=== PATIENT | female | born 1935 | race Caucasian/White ===

== ENCOUNTER 2016-08-14 09:27 | Inpatient (IN) | payer MEDICARE, BC ==
[~2016-08-14] VITALS: Ht 152.4 cm; Wt 45.4 kg
[~2016-08-14 09:27] MED LIST: ACET-704 PO; AMIT25TA PO; CALC3.7S5 NS; CARV6.252 PO; CIPR250T30 PO; CIPR500T94 PO; HYDR-2666 PO; INSU100V31 SQ; INSU100V8 SQ; METR500T PO; OMEP20CA9 PO; POLY17PO29 PO; SIMV80TA3 PO; TAMS0.4C2 PO
--- NOTE | 2016-08-14 09:32 | PHYS DOC ---
Past Medical History Past Medical History: Diabetes-Type II, Hypertension, Other Additional Past Medical Histor: heart murmur, CHRONIC LOW BACK PAIN. Past Surgical History: Cholecystectomy, Other Additional Past Surgical Histo: back surgery, eye surgery, right humerus surgery, KYPHOPLASTY Alcohol Use: None Drug Use: None Adult General Chief Complaint Chief Complaint: WEAKNESS/GENERALIZED HPI HPI Patient is a 80 year old female brought in by for evaluation of increased confusion and decreased ambulation and generally not doing well at home. Patient says that she has pain all over but is worse in her perineal area. She was incontinent of urine in hent a large amount of stool as well that was cleaned up by the nurses prior to me seeing her. There is no obvious deformity or infection with no subcutaneous gas however reports that she has been having this pain for a long period of time and is seeing multiple specialists for it. reports that she is not as interactive as usual and that she is getting to be so debilitated that he cannot take care of her anymore as he has heart failure. Patient reportedly has been in bed for 2 weeks straight and has not been ambulatory. Review of Systems Review of Systems Constitutional: Denies fever or chills [] Eyes: Denies change in visual acuity, redness, or eye pain [] HENT: Denies nasal congestion or sore throat [] Respiratory: Denies cough or shortness of breath [] Cardiovascular: No additional information not addressed in HPI [] GI: + abdominal pain. No nausea, vomiting, bloody stools or diarrhea [] : Denies dysuria or hematuria [] Musculoskeletal: Denies back pain or joint pain [] Integument: Denies rash or skin lesions [] Neurologic: Denies headache, focal weakness or sensory changes [] Current Medications Current Medications Current Medications Medications (Trade) Dose Ordered Sig/Rosa Start Time Stop Time Status Last Admin Dose Admin Sodium Chloride 1,000 ml @ 1,000 mls/hr 1X ONCE 08/14/16 09:45 08/14/16 10:44 DC 08/14/16 10:24 1,000 MLS/HR Allergies Allergies Allergies Coded Allergies Type Severity Reaction Last Updated Verified clarithromycin Allergy Intermediate 11/16/15 Yes niacin Allergy Intermediate Rash 04/06/15 Yes Physical Exam Physical Exam Constitutional: Well developed, well nourished, no acute distress, non-toxic appearance. [] HENT: Normocephalic, atraumatic, bilateral external ears normal, oropharynx moist, no oral exudates, nose normal. [] Eyes: PERRLA, EOMI, conjunctiva normal, no discharge. [] Neck: Normal range of motion, no tenderness, supple, no stridor. [] Cardiovascular:Heart rate regular rhythm, no murmur [] Lungs & Thorax: Bilateral breath sounds clear to auscultation [] Abdomen: Bowel sounds normal, soft, no tenderness, no masses, no pulsatile masses. [] Skin: Warm, dry, no erythema, no rash. [] Back: No tenderness, no CVA tenderness. [] Extremities: No tenderness, no cyanosis, no clubbing, ROM intact, no edema. [] Neurologic: Alert and oriented X 2, normal motor function, normal sensory function, no focal deficits noted. [] Current Patient Data Vital Signs Vital Signs Date Time Temp Pulse Resp B/P (MAP) Pulse Ox O2 Delivery O2 Flow Rate FiO2 08/14/16 10:49 72 22 151/73 (99) 94 08/14/16 09:49 98.0 Room Air 98.0 Lab Values Laboratory Tests Test 08/14/16 10:05 08/14/16 10:10 Urine Collection Type Unknown Urine Color Yellow Urine Clarity Clear Urine pH 6.0 Urine Specific Hooper >=1.030 Urine Protein 30 mg/dL (NEG-TRACE) Urine Glucose (UA) >=1000 mg/dL (NEG) Urine Ketones (Stick) Negative mg/dL (NEG) Urine Blood Small (NEG) Urine Nitrite Negative (NEG) Urine Bilirubin Negative (NEG) Urine Urobilinogen Dipstick 0.2 mg/dL (0.2 mg/dL) Urine Leukocyte Esterase Negative (NEG) Urine RBC 11-20 /HPF (0-2) Urine WBC 0 /HPF (0-4) Urine Squamous Epithelial Cells Few /LPF Urine Bacteria 0 /HPF (0-FEW) White Blood Count 10.9 x10^3/uL (4.0-11.0) Red Blood Count 5.09 x10^6/uL (3.50-5.40) Hemoglobin 14.7 g/dL (12.0-15.5) Hematocrit 43.8 % (36.0-47.0) Mean Corpuscular Volume 86 fL (79-100) Mean Corpuscular Hemoglobin 29 pg (25-35) Mean Corpuscular Hemoglobin Concent 34 g/dL (31-37) Red Cell Distribution Width 14.4 % (11.5-14.5) Platelet Count 344 x10^3/uL (140-400) Neutrophils (%) (Auto) 80 % (31-73) H Lymphocytes (%) (Auto) 14 % (24-48) L Monocytes (%) (Auto) 5 % (0-9) Eosinophils (%) (Auto) 0 % (0-3) Basophils (%) (Auto) 0 % (0-3) Neutrophils # (Auto) 8.7 x10^3uL (1.8-7.7) H Lymphocytes # (Auto) 1.6 x10^3/uL (1.0-4.8) Monocytes # (Auto) 0.5 x10^3/uL (0.0-1.1) Eosinophils # (Auto) 0.0 x10^3/uL (0.0-0.7) Basophils # (Auto) 0.0 x10^3/uL (0.0-0.2) Prothrombin Time 12.7 SEC (11.7-14.0) Prothrombin Time INR 1.0 (0.8-1.1) PTT 31 SEC (24-38) Sodium Level 131 mmol/L (136-145) L Potassium Level 5.2 mmol/L (3.5-5.1) H Chloride Level 94 mmol/L (98-107) L Carbon Dioxide Level 26 mmol/L (21-32) Anion Gap 11 (6-14) Blood Urea Nitrogen 42 mg/dL (7-20) H Creatinine 1.6 mg/dL (0.6-1.0) H Estimated GFR (Cockcroft-Gault) 30.9 BUN/Creatinine Ratio 26 (6-20) H Glucose Level 830 mg/dL (70-99) *H Serum Osmolality 329 mOsm/Kg (279-304) H Lactic Acid Level 2.0 mmol/L (0.4-2.0) Calcium Level 9.5 mg/dL (8.5-10.1) Magnesium Level 2.0 mg/dL (1.8-2.4) Total Bilirubin 0.6 mg/dL (0.2-1.0) Aspartate Amino Transferase (AST) 10 U/L (15-37) L Alanine Aminotransferase (ALT) 18 U/L (14-59) Alkaline Phosphatase 104 U/L (46-116) Creatine Kinase 28 U/L (26-192) Troponin I Quantitative < 0.017 ng/mL (0.000-0.055) XP-Zng-B-Type Natriuretic Peptide 335 pg/mL (0-449) Total Protein 8.2 g/dL (6.4-8.2) Albumin 3.3 g/dL (3.4-5.0) L Albumin/Globulin Ratio 0.7 (1.0-1.7) L Lipase 306 U/L (73-393) Thyroid Stimulating Hormone (TSH) 1.338 uIU/mL (0.358-3.74) Salicylates Level < 2.8 mg/dL (2.8-20.0) L Salicylate Last Dose Date Unknown Salicylate Last Dose Time Unknown Acetaminophen Level < 2 mcg/ml (10-30) L Acetaminophen Last Dose Date Unknown Acetaminophen Last Dose Time Unknown Laboratory Tests 08/14/16 10:10 Laboratory Tests 08/14/16 10:10 EKG EKG Sinus rhythm at 74 bpm with leftward axis no obvious ST elevation or depression and normal T waves Radiology/Procedures Radiology/Procedures EXAM: Head CT without contrast. HISTORY: Altered mental status. TECHNIQUE: Computed tomographic images of the head were obtained without contrast. COMPARISON: 05/12/2012. FINDINGS: There is no acute or subacute extra-axial or intraparenchymal hemorrhage. There is no mass effect or midline shift. There is no hydrocephalus. There is encephalomalacia within the ureter right frontal and temporal lobes, possibly due to chronic infarction. There are also suspected chronic lacunar infarcts within the right putamen and left internal capsule. There is extensive decreased attenuation throughout the cerebral white matter, a nonspecific finding likely due to chronic small vessel disease. There is cerebral volume loss. There are findings consistent with lens surgery. There is near complete opacification of the left maxillary sinus. There is a small mucous retention cyst within the joint sinus. There is lucency throughout the calvarium similar compared to the prior study, likely due to combination of bone demineralization multiple vascular channels. IMPRESSION: 1. No acute intracranial finding. Note is made that MRI is more sensitive for acute infarction. 2. 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 3. Decreased attenuation throughout the cerebral white matter, likely due to chronic small vessel disease. 4. Cerebral and loss. 5. Left maxillary sinus disease. PQRS Compliance Statement: One or more of the following individualized dose reduction techniques were utilized for this examination: 1. Automated exposure control 2. Adjustment of the mA and/or kV according to patient size 3. Use of iterative reconstruction technique DICTATED and SIGNED BY: TOOTIE PERALTA MD DATE: 08/14/16 1100 EXAM: Chest, single view. HISTORY: Altered mental status. COMPARISON: 10/09/2013 and 04/04/2007. FINDINGS: A frontal view of the chest is obtained. There is a stable to slight increased opacity along the lateral right mid thorax, consistent with a fat density pleural-based lesion on a prior CT dated 04/04/2007. There is no infiltrate, effusion or pneumothorax. The heart is normal in size. There is a right shoulder arthroplasty. There is internal fixation of the thoracolumbar spine traversing multiple compression fractures. There are also compression fractures with vertebroplasty changes at the upper lumbar levels. IMPRESSION: 1. No acute pulmonary finding. 2. Stable to slight increased opacity within the lateral right mid thorax. This corresponds with a fat density pleural-based lesion on the remote prior CT dated 04/04/2007. The stability to slow interval change favors a benign lipoma. DICTATED and SIGNED BY: TOOTIE PERALTA MD DATE: 08/14/16 0851 Course & Med Decision Making Course & Med Decision Making Patient's labs show that she is quite hyperglycemic however there is no ketones in her urine and she is not acidotic. Given patient is failing at home and she has laboratory abnormalities she will be admitted for further observation and treatment. She was treated with IV fluids and a one-time 10 unit bolus of insulin in the emergency department. Dragon Disclaimer Dragon Disclaimer This electronic medical record was generated, in whole or in part, using a voice recognition dictation system. Departure Departure Impression: Primary Impression: Encephalopathy acute Additional Impressions: Hyperglycemia Renal insufficiency Dehydration Disposition: ADMITTED INPATIENT Admitting Physician: Robert Griffin Condition: STABLE Referrals: ROBERT GRIFFIN MD (PCP) Problem Qualifiers YOSEF HOLT DO August 14, 2016 09:32
[2016-08-14] MEDS ORDERED: IV NORMAL SALINE 1000ML BAG 1,000 ML IV ONE ×2 (09:45→11:15)
[2016-08-14 10:25] LABS: BILIRUBIN,URINE NEGATIVE (NEG); GLUCOSE,URINE >=1000 mg/dL (NEG); NITRITE,URINE NEGATIVE (NEG); PROTEIN,URINE 30 mg/dL (NEG-TRACE); UROBILINOGEN,URINE 0.2 mg/dL (0.2 mg/dL)
[2016-08-14 10:44] LABS: BACTERIA,URINE 0 /HPF (0-FEW); SQUAMOUS EPITHELIAL CELL,UR FEW /LPF; WBC,URINE 0 /HPF (0-4)
[2016-08-14 10:49] LABS: BASO % 0 % (0-3); EOS % 0 % (0-3); HEMATOCRIT 43.8 % (36.0-47.0); HEMOGLOBIN 14.7 g/dL (12.0-15.5); LYMPH # 1.6 x10^3/uL (1.0-4.8); LYMPH % 14 % (24-48); MEAN CORPUSCULAR HEMOGLOBIN 29 pg (25-35); MEAN CORPUSCULAR HGB CONC 34 g/dL (31-37); MEAN CORPUSCULAR VOLUME 86 fL (79-100); MONO % 5 % (0-9); NEUT % 80 % (31-73); PLATELET COUNT 344 x10^3/uL (140-400); RED BLOOD COUNT 5.09 x10^6/uL (3.50-5.40); RED CELL DISTRIBUTION WIDTH 14.4 % (11.5-14.5); WHITE BLOOD COUNT 10.9 x10^3/uL (4.0-11.0)
[2016-08-14 10:52] LABS: PROTHROMBIN TIME PATIENT 12.7 SEC (11.7-14.0)
[2016-08-14 10:55] LABS: CALCIUM 9.5 mg/dL (8.5-10.1); CREATININE 1.6 mg/dL (0.6-1.0); GFR 30.9; POTASSIUM 5.2 mmol/L (3.5-5.1)
--- NOTE | 2016-08-14 10:57 | RAD ---
EXAM: Chest, single view. HISTORY: Altered mental status. COMPARISON: 10/09/2013 and 04/04/2007. FINDINGS: A frontal view of the chest is obtained. There is a stable to slight increased opacity along the lateral right mid thorax, consistent with a fat density pleural-based lesion on a prior CT dated 04/04/2007. There is no infiltrate, effusion or pneumothorax. The heart is normal in size. There is a right shoulder arthroplasty. There is internal fixation of the thoracolumbar spine traversing multiple compression fractures. There are also compression fractures with vertebroplasty changes at the upper lumbar levels. IMPRESSION: 1. No acute pulmonary finding. 2. Stable to slight increased opacity within the lateral right mid thorax. This corresponds with a fat density pleural-based lesion on the remote prior CT dated 04/04/2007. The stability to slow interval change favors a benign lipoma.
[2016-08-14 10:58] LABS: ALBUMIN 3.3 g/dL (3.4-5.0); ALBUMIN/GLOBULIN RATIO 0.7 (1.0-1.7); TOTAL BILIRUBIN 0.6 mg/dL (0.2-1.0); TOTAL PROTEIN 8.2 g/dL (6.4-8.2)
--- NOTE | 2016-08-14 11:06 | RAD ---
EXAM: Head CT without contrast. HISTORY: Altered mental status. TECHNIQUE: Computed tomographic images of the head were obtained without contrast. COMPARISON: 05/12/2012. FINDINGS: There is no acute or subacute extra-axial or intraparenchymal hemorrhage. There is no mass effect or midline shift. There is no hydrocephalus. There is encephalomalacia within the ureter right frontal and temporal lobes, possibly due to chronic infarction. There are also suspected chronic lacunar infarcts within the right putamen and left internal capsule. There is extensive decreased attenuation throughout the cerebral white matter, a nonspecific finding likely due to chronic small vessel disease. There is cerebral volume loss. There are findings consistent with lens surgery. There is near complete opacification of the left maxillary sinus. There is a small mucous retention cyst within the joint sinus. There is lucency throughout the calvarium similar compared to the prior study, likely due to combination of bone demineralization multiple vascular channels. IMPRESSION: 1. No acute intracranial finding. Note is made that MRI is more sensitive for acute infarction. 2. 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 3. Decreased attenuation throughout the cerebral white matter, likely due to chronic small vessel disease. 4. Cerebral and loss. 5. Left maxillary sinus disease. PQRS Compliance Statement: One or more of the following individualized dose reduction techniques were utilized for this examination: 1. Automated exposure control 2. Adjustment of the mA and/or kV according to patient size 3. Use of iterative reconstruction technique
--- NOTE | 2016-08-14 11:10 | EKG ---
[facility] [address] [place] [address] Test Date: 2016-08-14 Test Time: 09:55:02 Pat Name: ASPEN AYERS Department: Room: Gender: F Straightener: : 1935 Requested By: YOSEF HOLT Order Number: [id number] Reading MD: Yessi Mcnamara Measurements Intervals Barker Rate: 74 P: 29 AR: 122 QRS: -22 QRSD: 74 T: 13 QT: 380 QTc: 427 Interpretive Statements SINUS RHYTHM LEFTWARD AXIS Electronically Signed On 08-14-2016 15:59:55 CDT by Yessi Mcnamara
[2016-08-14] MEDS ORDERED: ONDANSETRON PF 4 MG/2 ML VIAL. IV PRN (11:15)
[2016-08-14] MEDS ORDERED: INSULIN REGULAR 100 UNIT/ML 10ML VIAL. IV ONE (11:15)
--- NOTE | 2016-08-14 11:46 | ACF ---
Admission Forms Criteria MENTAL STATUS CHANGE Clinical Indications for Inpatient Care (Place 'X' for any and all applicable criteria): Ongoing inpatient care may be needed for 1 or more of the following(1)(2)(3)(5)( 6): [X]I. Suspected serious etiology (eg, medical disorder, GUEST RELATIONS REPRESENTATIVE event) of altered mental status [ ]II. Danger to self or others not manageable at lower level of care [ ]III. Grave disability (eg, inability to perform self care necessary at lower level of care) [ ]IV. Agitation or inappropriate behavior interfering with care for primary condition (eg, attempting to discontinue lines or drains prematurely, unable to cooperate with respiratory care) [ ]V. Delirium [A] [D][E] as described by 1 or more of the following(26): [ ]a) Delirium due to alcohol or sedative [F] withdrawal [ ]b) Delirium of uncertain etiology that has not responded to appropriate empiric treatment [ ]c) Delirium that prevents performance of a life-sustaining function (eg, feeding or hydrating oneself) [ ]. General contraindications and/or Inappropriate clinical situations for Observational Care in patients with Mental Status Change, when ANY ONE of the following is required: [ ]a) Prediction of prolongation of LOS based on ANY ONE of the following may be considered as a contraindication for observational care 2, 3, 4, 5, 6, 7, 8, 9, 10, 11 [ ]i) Age > 65 yrs. [ ]ii) Patient arriving by ambulance [ ]iii) Patient with high acuity [ ]iv) Patient requiring vital sign monitoring [ ]v) Patient on IV medication [ ]b) Systolic blood pressures greater than or equal to 180mmHg 3, 12 [ ]c) Patient with altered mental status including delirium and other alteration of consciousness, (3) [ ]d) Patient whose discharge disposition will be to a senior living home or rehabilitation home should not be managed in Emergency Department Observation Unit. CMS rule requires 3 days hospital stay before such placement.3,13 [ ]e) Patient with failure to thrive due to broad array of etiologies 3,16,17 [ ]f) Inability to ambulate 3,14 Extended stay beyond goal length of stay for the primary condition may be needed until ALL of the following are present(3)(5): [ ]a) Underlying medical etiology of mental status change is absent, or has been established and adequately treated [ ]b) Danger to self or others is absent or manageable at lower level of care. [ ]c) Behavior crisis management, including physical or chemical restraints, is not required or available at lower level of car [ ]d) Substance or alcohol withdrawal is absent or manageable at lower level of care. [ ]e) Behavioral symptoms (eg, agitation, somnolence, inappropriate behavior) are absent, or are manageable at lower level of care. The original [facility] [employer] content created by [facility] [employer] has been revised. The portions of the content which have been revised are identified through the use of italic text or in bold, and [facility] has neither reviewed nor approved the modified material. All other unmodified content is copyright [facility]. Please see references footnoted in the original [facility] edition 2016 Admission Criteria Met?: Yes AXEL ZEPEDA August 14, 2016 11:46
[2016-08-14 13:05] VITALS: BP 144/77
[2016-08-14] MEDS: INSULIN ASPART 300 UNITS/3 ML INSULN.PEN SQ SCH ×6 (13:10→23:10)
[2016-08-14] MEDS ORDERED: DEXTROSE 50% 25 GM / 50ML DISP.SYRIN. IV PRN (13:15)
[2016-08-14 15:00] VITALS: BP 157/89
[2016-08-14] MEDS ORDERED: ONDA4TAB12 PO (16:48)
[2016-08-14] MEDS ORDERED: INSULIN ASPART 300 UNITS/3 ML INSULN.PEN SQ SCH (17:00)
[2016-08-14 19:00] VITALS: BP 107/63
[2016-08-14 22:57] VITALS: BP 134/61
[2016-08-15] MEDS: INSULIN ASPART 300 UNITS/3 ML INSULN.PEN SQ SCH ×9 (01:10→20:28)
[2016-08-15 03:00] VITALS: BP 141/61
[2016-08-15 05:19] LABS: BASO % 0 % (0-3); EOS % 2 % (0-3); HEMATOCRIT 39.3 % (36.0-47.0); HEMOGLOBIN 12.9 g/dL (12.0-15.5); LYMPH # 2.8 x10^3/uL (1.0-4.8); LYMPH % 25 % (24-48); MEAN CORPUSCULAR HEMOGLOBIN 28 pg (25-35); MEAN CORPUSCULAR HGB CONC 33 g/dL (31-37); MEAN CORPUSCULAR VOLUME 85 fL (79-100); MONO % 6 % (0-9); NEUT % 66 % (31-73); PLATELET COUNT 273 x10^3/uL (140-400); RED BLOOD COUNT 4.64 x10^6/uL (3.50-5.40); RED CELL DISTRIBUTION WIDTH 14.5 % (11.5-14.5)
[2016-08-15 05:45] LABS: CREATININE 1.1 mg/dL (0.6-1.0); GFR 47.6; POTASSIUM 4.5 mmol/L (3.5-5.1)
[2016-08-15 05:48] LABS: CALCIUM 8.5 mg/dL (8.5-10.1)
[2016-08-15 07:00] VITALS: BP 144/77
[2016-08-15 10:46] VITALS: BP 118/67
[2016-08-15] MEDS ORDERED: DEXTROSE 50% 25 GM / 50ML DISP.SYRIN. IV PRN ×2 (12:30)
[2016-08-15] MEDS ORDERED: ONDANSETRON ODT 4 MG TAB.RAPDIS. PO PRN (12:30)
[2016-08-15] MEDS ORDERED: POLYETHYLENE GLYCOL 3350 17 GM PACKET. PO PRN (12:30)
--- NOTE | 2016-08-15 12:39 | PDOC ---
Provider Note Provider Note [id number] YOSEF GLASS MD August 15, 2016 12:39
[2016-08-15] MEDS: AMITRIPTYLINE HCL 25 MG TABLET. PO SCH (12:52)
[2016-08-15] MEDS: HYDROcodone/APAP 5/325MG 1 TAB TABLET PO PRN (12:52)
--- NOTE | 2016-08-15 13:02 | HP ---
ADMIT DATE: 08/14/2016 CHIEF COMPLAINT: Weakness and high blood sugar. HISTORY OF PRESENT ILLNESS: This is an 80-year-old white female, patient of Dr. Peres who normally has been on insulin for diabetes, ____ she is not taking "it for a long time" since she ____ [facility]. She came in with a high blood sugar of 500, after a couple doses of Humalog, her blood sugars are down to around 150-200 and she is feeling better. She has no other specific complaints. PAST MEDICAL HISTORY: Well documented in old records. MEDICATIONS: Listed per the chart. She is not able to provide clear surgical history. She has a history of macular degeneration and poor hearing as well. SOCIAL HISTORY: Nonsmoker, nondrinker, and lives at home according to her. FAMILY HISTORY: Unremarkable. REVIEW OF SYSTEMS: No other specific complaints. OBJECTIVE: ENT: Mild pallor, otherwise all within normal limits. Mucosa mildly dry. NECK: Revealed no carotid bruits, JVD or nodes. LUNGS: Clear. CARDIOVASCULAR: Regular rate. No irregular beat, murmur or tachycardia. ABDOMEN: Soft, benign and nontender. EXTREMITIES: Very diminished muscle mass. No joint or skin lesions. Skin turgor is decreased. Pedal pulses mildly decreased as well. NEUROLOGIC: Moves all extremities. Oriented poor hearing, poor vision. Cranial nerves and cerebellar appear to be intact. No tremors are noted. oriented x 4. ASSESSMENT: Severe hyperglycemia, presumably from to simply lack of insulin. Rest of labs looks pretty good except for she is mildly dry. PLAN: Continue Levemir and sliding scale to maintain a blood sugar in the 150-200 range for safety. YOSEF GLASS MD DR: JUSTIN/jong JOB#: [id number] / [id number]
[2016-08-15] MEDS: CALCITONIN,SALMON NASAL 200 UNITS/SPRAY 3.7ML BOTTLE. NS SCH (14:37)
[2016-08-15 14:58] VITALS: BP 120/70
[2016-08-15] MEDS: PANTOPRAZOLE 40 MG TABLET.DR. PO SCH (16:35)
[2016-08-15] MEDS: CARVEDILOL 6.25 MG TABLET. PO SCH (16:35)
[2016-08-15 19:00] VITALS: BP 89/53
[2016-08-15] MEDS: TAMSULOSIN 0.4 MG CAP.ER.24H. PO SCH (20:15)
[2016-08-15] MEDS: INSULIN DETEMIR 300 UNITS/3 ML INSULN.PEN. SQ SCH (20:27)
[2016-08-15 23:05] VITALS: BP 104/56
[2016-08-16 03:00] VITALS: BP 119/58
[2016-08-16 07:00] VITALS: BP 123/65
[2016-08-16] MEDS: PANTOPRAZOLE 40 MG TABLET.DR. PO SCH (07:21)
[2016-08-16] MEDS: INSULIN ASPART 300 UNITS/3 ML INSULN.PEN SQ SCH ×7 (07:49→21:38)
[2016-08-16] MEDS: AMITRIPTYLINE HCL 25 MG TABLET. PO SCH (08:21)
[2016-08-16] MEDS: CALCITONIN,SALMON NASAL 200 UNITS/SPRAY 3.7ML BOTTLE. NS SCH (08:22)
[2016-08-16] MEDS: CARVEDILOL 6.25 MG TABLET. PO SCH ×2 (08:22→17:15)
[2016-08-16 11:00] VITALS: BP 110/82
[2016-08-16] MEDS: HYDROcodone/APAP 5/325MG 1 TAB TABLET PO PRN (14:27)
[2016-08-16 15:00] VITALS: BP 109/66
--- NOTE | 2016-08-16 17:38 | PDOC2 ---
CONSULT Date of Consult Date of Consult DATE: 08/16/16 TIME: 17:32 Reason for Consult Reason for Consult: vulvar burning Referring Physician Referring Physician: Dr. Salcido Identification/Chief Complaint Chief Complaint vulvar burning Source Source: Chart review, Patient History of Present Illness Reason for Visit: 80 y/o brought from half-way. She is poor historian. Pt. reports at least 1 year of vulvar pruritis unresponsive to treatments from previous [employer] physicians. She denies any pain, bleeding, or hematuria. Chart reviewed. Pt. uncontrolled diabetes. Past Medical History Cardiovascular: Hyperlipidemia Pulmonary: No pertinent hx GI: GERD, Other Heme/Onc: No pertinent hx Hepatobiliary: Cholelithiasis Psych: Anxiety Musculoskeletal: Other Rheumatologic: No pertinent hx Renal/: Chronic renal failure, UTI Endocrine: Diabetes, Hypothyroidism Past Surgical History Past Surgical History: Appendectomy, Cholecystectomy Family History Family History: Diabetes, Heart Disease Social History ALCOHOL: none Drugs: None Lives: with Family Current Problem List Problem List Problems Medical Problems: (1) Dehydration Status: Acute (2) Encephalopathy acute Status: Acute (3) Hyperglycemia Status: Acute (4) Renal insufficiency Status: Acute Current Medications Current Medications Current Medications Sodium Chloride 1,000 ml @ 1,000 mls/hr 1X ONCE IV Last administered on 10:24; Start 08/14/16 at 09:45; Stop 08/14/16 at 10:44; Status DC Insulin Human Regular (NovoLIN R VIAL) 10 unit 1X ONCE IV Last administered on 08/14/16 11:25; Start 08/14/16 at 11:15; Stop 08/14/16 at 11:17; Status DC Sodium Chloride 1,000 ml @ 150 mls/hr 1X ONCE IV Last administered on 12:13; Start 08/14/16 at 11:15; Stop 08/14/16 at 17:54; Status DC Ondansetron HCl (Zofran) 4 mg PRN Q8HRS PRN IV NAUSEA/VOMITING Last administered on 08/14/16 11:22; Start 08/14/16 at 11:15; Stop 08/15/16 at 11:14 ; Status DC Insulin Aspart (NovoLOG) 0-7 UNITS TIDWMEALS SQ ; Start 08/14/16 at 17:00; Stop 08/14/16 at 17:00; Status DC Dextrose (Dextrose 50%-Water Syringe) 12.5 gm PRN Q15MIN PRN IV SEE COMMENTS; Start 08/14/16 at 13:15; Status Cancel Insulin Aspart (NovoLOG) 0-7 UNITS Q2H SQ Last administered on 08/15/16 11:29 ; Start 08/14/16 at 13:10; Stop 08/15/16 at 13:08; Status DC Amitriptyline HCl (Elavil) 25 mg DAILY PO Last administered on 08/16/16 08:21 ; Start 08/15/16 at 13:00 Calcitonin [place] (Miacalcin Nasal) 1 spray DAILY NS Last administered on 08:22; Start 08/15/16 at 12:00 Carvedilol (Coreg) 6.25 mg BIDWMEALS PO Last administered on 08/16/16 17:15; Start 08/15/16 at 17:00 Acetaminophen/ Hydrocodone Bitart (Lortab 5/325) 1 tab PRN Q4HRS PRN PO MODERATE TO SEVERE PAIN Last administered on 08/16/16 14:27; Start 08/15/16 at 12:30 Insulin Aspart (NovoLOG) 4 units QIDACHS SQ Last administered on 08/16/16 17: 19; Start 08/15/16 at 16:30 Ondansetron HCl (Zofran Odt) 4 mg PRN Q4HRS PRN PO NAUSEA; Start 08/15/16 at 12 :30 Polyethylene Glycol (miraLAX PACKET) 17 gm PRN DAILY PRN PO CONSTIPATION; Start 08/15/16 at 12:30 Tamsulosin HCl (Flomax) 0.4 mg QHS PO Last administered on 08/15/16 20:15; Start 08/15/16 at 21:00 Insulin Detemir (Levemir) 19 units QHS SQ Last administered on 08/15/16 20:27 ; Start 08/15/16 at 21:00 Pantoprazole Sodium (Protonix) 40 mg DAILYAC PO Last administered on 08/16/16 07:21; Start 08/15/16 at 16:30 Dextrose (Dextrose 50%-Water Syringe) 12.5 gm PRN Q15MIN PRN IV SEE COMMENTS; Start 08/15/16 at 12:30 Dextrose (Dextrose 50%-Water Syringe) 12.5 gm PRN Q15MIN PRN IV SEE COMMENTS; Start 08/15/16 at 12:30; Stop 08/15/16 at 12:42; Status DC Insulin Aspart (NovoLOG) 0-5 UNITS TIDWMEALS SQ Last administered on 08/16/16t 11:52; Start 08/15/16 at 17:00 Active Scripts Active Calcitonin-[place] (Calcitonin,[place],Synthetic) 3.7 Ml [place].pump 1 [place] NS DAILY Hydrocodone-Apap 5-325 (Hydrocodone Bit/Acetaminophen) 1 Each Tablet 1 Tab PO PRN Q4HRS PRN Reported Ondansetron Odt (Ondansetron) 4 Mg Tab.rapdis 4 Mg PO PRN Q4HRS PRN Tamsulosin Hcl 0.4 Mg Cap.er.24h 1 Cap PO QHS Miralax (Polyethylene Glycol 3350) 17 Gm Powd.pack 1 Pkt PO DAILY PRN Novolog (Insulin Aspart) 100 Unit/1 Ml Vial 4 Unit SQ QIDACHS Amitriptyline Hcl 25 Mg Tablet 25 Mg PO DAILY Lantus (Insulin Glargine,Hum.rec.anlog) 100 Unit/1 Ml Vial 19 Unit SQ HS Omeprazole 20 Mg Capsule.dr 20 Mg PO DAILY Tylenol With Codeine #3 Tablet (Acetaminophen/Codeine Phosphate) 1 Each Tablet 1 Each PO Q4HRS PRN Carvedilol 6.25 Mg Tablet 6.25 Mg PO BID Allergies Allergies: Coded Allergies: clarithromycin (Verified Allergy, Intermediate, 11/16/15) niacin (Verified Allergy, Intermediate, Rash, 04/06/15) ROS General: YES: Fatigue, Appetite, No: Chills, Night Sweats, Malaise, Other PSYCHOLOGICAL ROS: No: Anxiety, Behavioral Disorder, Concentration difficultie , Decreased libido, Depression, Disorientation, Hallucinations, Hostility, Irritablity, Memory difficulties, Mood Swings, Obsessive thoughts, Physical abuse, Sexual abuse, Sleep disturbances, Suicidal ideation, Other Eyes: Yes Decreased vision, No Blurry vision, No Double vision, No Dry eyes, No Excessive tearing, No Eye Pain, No Itchy Eyes, No Loss of vision, No Photophobia, No Scotomata, No Uses contacts, No Uses glasses, No Other HEENT: YES: Hearing change, No: Heacaches, Visual Changes, Nasal congestion, Nasal discharge, Oral lesions, Sinus pain, Sore Throat, Epistaxis, Sneezing, Snoring, Tinnitus, Vertigo, Vocal changes, Other ALLERGY AND IMMUNOLOGY: No: Hives, Insect Bite Sensitivity, Itchy/Watery Eyes, Nasal Congestion, Post Nasal Drip, Seasonal Allergies, Other Hematological and Lymphatic: No: Bleeding Problems, Blood Clots, Blood Transfusions, Brusing, Night Sweats, Pallor, Swollen Lymph Nodes, Other ENDOCRINE: No: Breast Changes, Galactorrhea, Hair Pattern Changes, Hot Flashes , Malaise/lethargy, Mood Swings, Palpitations, Polydipsia/polyuria, Skin Changes , Temperature Intolerance, Unexpected Weight Changes, Other Breast: No New/Changing Breast Lumps, No Nipple changes, No Nipple discharge, No Other Respiratory: No: Cough, Hemoptysis, Orthopnea, Pleuritic Pain, Shortness of breath, SOB with excertion, Sputum Changes, Stridor, Tachypnea, Wheezing, Other Gastrointestinal: No Nausea, No Vomiting, No Abdominal Pain, No Diarrhea, No Constipation, No Melena, No Hematochezia, No Other Genitourinary: YES Other (vulvar pruritis) Skin: No Dry Skin, No Eczema, No Hair Changes, No Lumps, No Mole Changes, No Mottling, No Nail Changes, No Pruritus, No Rash, No Skin Lesion Changes, No Other, No Acne Physical Exam General: Alert, Cooperative HEENT: Atraumatic Lungs: Clear to auscultation Heart: Regular rate Abdomen: Normal bowel sounds, Soft, No tenderness, No masses, Other (Pelvic: nml atrophic vulvar and vaginal areas. No erythema, ulceration or evidence of infection.) Vitals VITALS Vital Signs Date Time Temp Pulse Resp B/P (MAP) Pulse Ox O2 Delivery O2 Flow Rate FiO2 08/16/16 17:15 68 109/66 08/16/16 15:00 97.9 22 99 Room Air 97.9 Labs Labs Laboratory Tests Test 08/14/16 19:25 08/14/16 21:14 08/14/16 23:09 08/15/16 01:17 Glucose (Fingerstick) 220 mg/dL (70-99) 74 mg/dL (70-99) 129 mg/dL (70-99) 144 mg/dL (70-99) Test 08/15/16 03:16 08/15/16 03:40 08/15/16 05:15 08/15/16 07:01 Glucose (Fingerstick) 212 mg/dL (70-99) 184 mg/dL (70-99) 216 mg/dL (70-99) White Blood Count 11.0 x10^3/uL (4.0-11.0) Red Blood Count 4.64 x10^6/uL (3.50-5.40) Hemoglobin 12.9 g/dL (12.0-15.5) Hematocrit 39.3 % (36.0-47.0) Mean Corpuscular Volume 85 fL (79-100) Mean Corpuscular Hemoglobin 28 pg (25-35) Mean Corpuscular Hemoglobin Concent 33 g/dL (31-37) Red Cell Distribution Width 14.5 % (11.5-14.5) Platelet Count 273 x10^3/uL (140-400) Neutrophils (%) (Auto) 66 % (31-73) Lymphocytes (%) (Auto) 25 % (24-48) Monocytes (%) (Auto) 6 % (0-9) Eosinophils (%) (Auto) 2 % (0-3) Basophils (%) (Auto) 0 % (0-3) Neutrophils # (Auto) 7.3 x10^3uL (1.8-7.7) Lymphocytes # (Auto) 2.8 x10^3/uL (1.0-4.8) Monocytes # (Auto) 0.7 x10^3/uL (0.0-1.1) Eosinophils # (Auto) 0.2 x10^3/uL (0.0-0.7) Basophils # (Auto) 0.0 x10^3/uL (0.0-0.2) Sodium Level 140 mmol/L (136-145) Potassium Level 4.5 mmol/L (3.5-5.1) Chloride Level 106 mmol/L (98-107) Carbon Dioxide Level 23 mmol/L (21-32) Anion Gap 11 (6-14) Blood Urea Nitrogen 29 mg/dL (7-20) Creatinine 1.1 mg/dL (0.6-1.0) Estimated GFR (Cockcroft-Gault) 47.6 Glucose Level 219 mg/dL (70-99) Calcium Level 8.5 mg/dL (8.5-10.1) Test 08/15/16 09:04 08/15/16 11:14 08/15/16 16:20 08/15/16 20:15 Glucose (Fingerstick) 333 mg/dL (70-99) 190 mg/dL (70-99) 293 mg/dL (70-99) 249 mg/dL (70-99) Test 08/16/16 07:23 08/16/16 10:47 Glucose (Fingerstick) 167 mg/dL (70-99) 164 mg/dL (70-99) Laboratory Tests Test 08/15/16 20:15 08/16/16 07:23 08/16/16 10:47 Glucose (Fingerstick) 249 mg/dL (70-99) 167 mg/dL (70-99) 164 mg/dL (70-99) Assessment/Plan Assessment/Plan A: Uncontrolled DM Type 2 Vulvitis: most likely yeast infection secondary to uncontrolled blood sugars P: Recommend nystatin/steroid cream TID. THank you for consult. DAYSI POLANCO Jr, MD August 16, 2016 17:38
--- NOTE | 2016-08-16 17:51 | PDOC ---
GENERAL General: vss and afebrile. awake and alert. weak. chest clear and heart regular. therapy recommending snu and will get eval. has expressed to nursing that he is not sure he can care for her any longer at home. sugars better with insulin back on board. otherwise same. Problems: VITAL SIGNS Vital Signs: Vital Signs Date Time Temp Pulse Resp B/P (MAP) Pulse Ox O2 Delivery O2 Flow Rate FiO2 08/16/16 17:15 68 109/66 08/16/16 15:00 97.9 22 99 Room Air 97.9 I & O I & O Intake and Output 08/16/16 07:00 Intake Total 1460 ml Output Total 0 ml Balance 1460 ml Intake Oral 1460 ml Output Urine Total 0 ml # Voids 4 ALLERGIES Allergies: Allergies Coded Allergies Type Severity Reaction Last Updated Verified clarithromycin Allergy Intermediate 11/16/15 Yes niacin Allergy Intermediate Rash 04/06/15 Yes MEDS Medications: Current Medications Medications (Trade) Dose Ordered Sig/Rosa Start Time Stop Time Status Last Admin Dose Admin Acetaminophen/ Hydrocodone Bitart (Lortab 5/325) 1 tab PRN Q4HRS PRN 08/15/16 12:30 08/16/16 14:27 1 TAB Amitriptyline HCl (Elavil) 25 mg DAILY 08/15/16 13:00 08/16/16 08:21 25 MG Calcitonin [place] (Miacalcin Nasal) 1 spray DAILY 08/15/16 12:00 08/16/16 08:22 1 SPRAY Carvedilol (Coreg) 6.25 mg BIDWMEALS 08/15/16 17:00 08/16/16 17:15 6.25 MG Dextrose (Dextrose 50%-Water Syringe) 12.5 gm PRN Q15MIN PRN 08/15/16 12:30 08/15/16 12:42 DC Insulin Aspart (NovoLOG) 0-5 UNITS TIDWMEALS 08/15/16 17:00 08/16/16 11:52 2 UNITS Insulin Detemir (Levemir) 19 units QHS 08/15/16 21:00 08/15/16 20:27 19 UNITS Insulin Human Regular (NovoLIN R VIAL) 10 unit 1X ONCE 08/14/16 11:15 08/14/16 11:17 DC 08/14/16 11:25 10 UNIT Nystatin/ Triamcinolone Acetonide (Mycolog Ii) 1 gabino TID 08/16/16 18:00 Ondansetron HCl (Zofran Odt) 4 mg PRN Q4HRS PRN 08/15/16 12:30 Ondansetron HCl (Zofran) 4 mg PRN Q8HRS PRN 08/14/16 11:15 08/15/16 11:14 DC 08/14/16 11:22 4 MG Pantoprazole Sodium (Protonix) 40 mg DAILYAC 08/15/16 16:30 08/16/16 07:21 40 MG Polyethylene Glycol (miraLAX PACKET) 17 gm PRN DAILY PRN 08/15/16 12:30 Sodium Chloride 1,000 ml @ 150 mls/hr 1X ONCE 08/14/16 11:15 08/14/16 17:54 DC 08/14/16 12:13 150 MLS/HR Tamsulosin HCl (Flomax) 0.4 mg QHS 08/15/16 21:00 08/15/16 20:15 0.4 MG LAB Lab: Laboratory Tests Test 08/15/16 20:15 08/16/16 07:23 08/16/16 10:47 Glucose (Fingerstick) 249 mg/dL (70-99) 167 mg/dL (70-99) 164 mg/dL (70-99) Nutrition Consultation Dietary Evaluation: Recommendations by RD: Add supplement feedings Comments: boost glucose control Expected Outcomes/Goals: to meet > 75% est nutr needs Malnutrition Findings: Food and Nutrition Intake (Mod: <75% est energy req 7days Body Fat Depletion (Non Severe: Mild Depletion Weight Status: Underweight APPLROBERT MD August 16, 2016 17:50
[2016-08-16] MEDS: NYSTATIN/TRIAMCIN TOPICAL CREAM 15GM TUBE. TP SCH ×2 (18:21→21:23)
[2016-08-16 19:00] VITALS: BP 92/53
[2016-08-16] MEDS: TAMSULOSIN 0.4 MG CAP.ER.24H. PO SCH (21:23)
[2016-08-16] MEDS: INSULIN DETEMIR 300 UNITS/3 ML INSULN.PEN. SQ SCH (21:37)
[2016-08-16 23:00] VITALS: BP 110/55
[2016-08-17 03:00] VITALS: BP 123/61
[2016-08-17 07:00] VITALS: BP 117/65
[2016-08-17] MEDS: NYSTATIN/TRIAMCIN TOPICAL CREAM 15GM TUBE. TP SCH (08:08)
[2016-08-17] MEDS: PANTOPRAZOLE 40 MG TABLET.DR. PO SCH (08:10)
[2016-08-17] MEDS: AMITRIPTYLINE HCL 25 MG TABLET. PO SCH (08:10)
[2016-08-17] MEDS: CARVEDILOL 6.25 MG TABLET. PO SCH (08:10)
[2016-08-17] MEDS: CALCITONIN,SALMON NASAL 200 UNITS/SPRAY 3.7ML BOTTLE. NS SCH (08:11)
[2016-08-17] MEDS: HYDROcodone/APAP 5/325MG 1 TAB TABLET PO PRN (08:14)
[2016-08-17] MEDS: INSULIN ASPART 300 UNITS/3 ML INSULN.PEN SQ SCH ×4 (08:18→11:56)
[2016-08-17 11:20] VITALS: BP 112/58
--- NOTE | 2016-08-17 17:09 | PDOC ---
GENERAL General: see discharge summary. Problems: VITAL SIGNS Vital Signs: Vital Signs Date Time Temp Pulse Resp B/P (MAP) Pulse Ox O2 Delivery O2 Flow Rate FiO2 08/17/16 11:20 98.4 66 16 112/58 (76) 96 Room Air 98.4 I & O I & O Intake and Output 08/17/16 07:00 Intake Total 1380 ml Output Total 900 ml Balance 480 ml Intake Oral 1380 ml Output Urine Total 900 ml # Voids 4 ALLERGIES Allergies: Allergies Coded Allergies Type Severity Reaction Last Updated Verified clarithromycin Allergy Intermediate 11/16/15 Yes niacin Allergy Intermediate Rash 04/06/15 Yes MEDS Medications: Current Medications Medications (Trade) Dose Ordered Sig/Rosa Start Time Stop Time Status Last Admin Dose Admin Acetaminophen/ Hydrocodone Bitart (Lortab 325) 1 tab PRN Q4HRS PRN 08/15/16 12:30 08/17/16 14:02 DC 08/17/16 08:14 1 TAB Amitriptyline HCl (Elavil) 25 mg DAILY 08/15/16 13:00 08/17/16 14:02 DC 08/17/16 08:10 25 MG Calcitonin [place] (Miacalcin Nasal) 1 spray DAILY 08/15/16 12:00 08/17/16 14:02 DC 08/17/16 08:11 1 SPRAY Carvedilol (Coreg) 6.25 mg BIDWMEALS 08/15/16 17:00 08/17/16 14:02 DC 08/17/16 08:10 6.25 MG Dextrose (Dextrose 50%-Water Syringe) 12.5 gm PRN Q15MIN PRN 08/15/16 12:30 08/15/16 12:42 DC Insulin Aspart (NovoLOG) 0-5 UNITS TIDWMEALS 08/15/16 17:00 08/17/16 14:02 DC 08/17/16 08:18 4 UNITS Insulin Detemir (Levemir) 19 units QHS 08/15/16 21:00 08/17/16 14:02 DC 08/16/16 21:37 19 UNITS Insulin Human Regular (NovoLIN R VIAL) 10 unit 1X ONCE 08/14/16 11:15 08/14/16 11:17 DC 08/14/16 11:25 10 UNIT Nystatin/ Triamcinolone Acetonide (Mycolog Ii) 1 gabino TID 08/16/16 18:00 08/17/16 14:02 DC 08/17/16 08:08 1 GABINO Ondansetron HCl (Zofran Odt) 4 mg PRN Q4HRS PRN 08/15/16 12:30 08/17/16 14:02 DC Ondansetron HCl (Zofran) 4 mg PRN Q8HRS PRN 08/14/16 11:15 08/15/16 11:14 DC 08/14/16 11:22 4 MG Pantoprazole Sodium (Protonix) 40 mg DAILYAC 08/15/16 16:30 08/17/16 14:02 DC 08/17/16 08:10 40 MG Polyethylene Glycol (miraLAX PACKET) 17 gm PRN DAILY PRN 08/15/16 12:30 08/17/16 14:02 DC Sodium Chloride 1,000 ml @ 150 mls/hr 1X ONCE 08/14/16 11:15 08/14/16 17:54 DC 08/14/16 12:13 150 MLS/HR Tamsulosin HCl (Flomax) 0.4 mg QHS 08/15/16 21:00 08/17/16 14:02 DC 08/16/16 21:23 0.4 MG LAB Lab: Laboratory Tests Test 08/16/16 20:48 08/17/16 07:10 08/17/16 11:27 Glucose (Fingerstick) 211 mg/dL (70-99) 193 mg/dL (70-99) 117 mg/dL (70-99) Nutrition Consultation Dietary Evaluation: Recommendations by RD: Add supplement feedings Comments: boost glucose control Expected Outcomes/Goals: to meet > 75% est nutr needs Malnutrition Findings: Food and Nutrition Intake (Mod: <75% est energy req 7days Body Fat Depletion (Non Severe: Mild Depletion Weight Status: Underweight ROBERT GRIFFIN MD August 17, 2016 17:09
--- NOTE | 2016-08-18 09:02 | DS ---
DATE OF DISCHARGE: 08/17/2016 PRIMARY DIAGNOSES: Profound hyperglycemia with a sugar of 830 at the time of admission, profound weakness, encephalopathy, acute renal failure, dehydration. CHIEF COMPLAINT AND HISTORY OF PRESENT ILLNESS: This 80-year-old white female was brought to the Emergency Room by her because of weakness and not making sense. She was found to be encephalopathic with profound hyperglycemia, acute renal failure and admitted to the hospital. SUMMARY OF STAY: The patient was admitted. Sugars came down. She felt considerably better. She was hydrated. Creatinine fell from 1.6 down to 1.1. During her stay, sugars came under better control. Upon further questioning, she had not been taking her insulin because of affordability at home of the same. raised concerns during her stay on whether he was able to take care of her any longer ____ weak enough to need some rehab and the patient was transferred to SNF on the day of discharge. DISPOSITION: She was discharged to SNF. ADA diet, activity as tolerated. PT and OT to follow. Meds were listed on the med rec and have been addressed. We will continue to follow her there. ROBERT GRIFFIN MD DR: MAXIMO/jong JOB#: [id number] / [id number]
== END 2016-08-17 14:02 | DRG 637 ==
LOC: ER 09:27 → 5 SOUTH 11:13
PROVIDERS: ADMIT Family Medicine; ATTEND Family Medicine
DX: E11.65 Type 2 diabetes mellitus with hyperglycemia (principal); G93.40 Encephalopathy, unspecified; N17.9 Acute kidney failure, unspecified; I12.9 Hypertensive chronic kidney disease with stage 1 through stage 4 chronic kidney disease, or unspecified chronic kidney disease; J32.0 Chronic maxillary sinusitis; K21.9 Gastro-esophageal reflux disease without esophagitis; N18.9 Chronic kidney disease, unspecified; E78.5 Hyperlipidemia, unspecified; E11.22 Type 2 diabetes mellitus with diabetic chronic kidney disease; B37.9 Candidiasis, unspecified; E03.9 Hypothyroidism, unspecified; E86.0 Dehydration; E11.51 Type 2 diabetes mellitus with diabetic peripheral angiopathy without gangrene; F41.9 Anxiety disorder, unspecified; G89.29 Other chronic pain; R32 Unspecified urinary incontinence; M54.5 Low back pain; H35.30 Unspecified macular degeneration; Z90.49 Acquired absence of other specified parts of digestive tract; Z79.899 Other long term (current) drug therapy; Z79.4 Long term (current) use of insulin; Z87.440 Personal history of urinary (tract) infections; Z83.3 Family history of diabetes mellitus; Z79.1 Long term (current) use of non-steroidal anti-inflammatories (NSAID); Z79.2 Long term (current) use of antibiotics; Z88.8 Allergy status to other drugs, medicaments and biological substances
CPT/HCPCS: 36415; 70450; 71010; 80048; 80053; 81001; 82550; 82962; 83605; 83690; 83735; 83880; 83930; 84443; 84484; 85027; 85610; 85730; 93005; 96361; 96374; 96375; G6038; J0630; J1815; J2405; J7030; 80196; 97530; 97535; 99285-25

== ENCOUNTER 2018-12-07 13:17 | Inpatient (IN) | payer MEDICARE, BC ==
[~2018-12-07] VITALS: Ht 157.5 cm; Wt 55.3 kg
[~2018-12-07 13:17] MED LIST changes: +CARV6.2511 PO; -CARV6.252 PO; +ESTR42.53 VG; +GABA-585 PO; -HYDR-2666 PO; +HYDR-2761 PO; +MIRA25TA PO; +OMEP20CA10 PO; -OMEP20CA9 PO; +ONDA4TAB12 PO; +SIMV80TA17 PO; -SIMV80TA3 PO
--- NOTE | 2018-12-07 13:44 | PHYS DOC ---
Past Medical History Past Medical History: Anxiety, Diabetes-Type II, Diverticulitis, GERD, High Cholesterol, Hypertension, Hypothyroid, Renal Disease, UTI, Other Additional Past Medical Histor: heart murmur, CHRONIC LOW BACK PAIN,CKD,MELENA, HEMORRHOIDS,FTT Past Surgical History: Cholecystectomy, Other Additional Past Surgical Histo: back surgery, eye surgery, right humerus surgery, KYPHOPLASTY Alcohol Use: None Drug Use: None Adult General Chief Complaint Chief Complaint: HIP PAIN HPI HPI 83-year-old female presents to the ER via EMS after a fall at assisted living. Patient states she was using her walker however the walker moved and she subsequently fell. This was apparently witnessed by her . She denies any loss of consciousness, chest pain, shortness of breath, abdominal pain. She does complain of left hip pain. Movements make the pain worse. EMS provided 2 doses of fentanyl 50 �g. She appears to be pain free at this time as well as is no movement. On exam her left lower extremity is shortened and externally rotated. Review of Systems Review of Systems Respiratory: Denies cough or shortness of breath [] Cardiovascular: No additional information not addressed in HPI [] GI: Denies abdominal pain, nausea, vomiting, bloody stools or diarrhea [] Musculoskeletal: Denies back pain, complains of left hip pain [] Neurologic: Denies headache, focal weakness or sensory changes [] All other systems were reviewed and found to be within normal limits, except as documented in this note. Current Medications Current Medications Current Medications Medications (Trade) Dose Ordered Sig/Rosa Start Time Stop Time Status Last Admin Dose Admin Fentanyl Citrate (Fentanyl 2ml Vial) 50 mcg 1X ONCE 12/07/18 15:15 12/07/18 15:16 DC 12/07/18 15:15 50 MCG Morphine Sulfate (Morphine Sulfate) 2 mg PRN Q2HR PRN 12/07/18 15:00 12/08/18 14:59 Ondansetron HCl (Zofran) 4 mg PRN Q8HRS PRN 12/07/18 15:00 12/08/18 14:59 Allergies Allergies Allergies Coded Allergies Type Severity Reaction Last Updated Verified clarithromycin Allergy Intermediate 11/16/15 Yes niacin Allergy Intermediate Rash 04/06/15 Yes Physical Exam Physical Exam Constitutional: Well developed, well nourished, no acute distress, non-toxic appearance. [] HENT: Normocephalic, atraumatic, bilateral external ears normal, oropharynx moist, no oral exudates, nose normal. [] Eyes: PERRLA, EOMI, conjunctiva normal, no discharge. [] Neck: Normal range of motion, no tenderness, supple, no stridor. [] Cardiovascular:Heart rate regular rhythm, no murmur [] Lungs & Thorax: Bilateral breath sounds clear to auscultation [] Abdomen: Bowel sounds normal, soft, no tenderness, no masses, no pulsatile masses. [] Skin: Warm, dry, no erythema, no rash. [] Back: No tenderness, no CVA tenderness. [] Extremities: No tenderness, no cyanosis, no clubbing, ROM intact, no edema. [] Neurologic: Alert and oriented X 3, normal motor function, normal sensory function, no focal deficits noted. [] Psychologic: Affect normal, judgement normal, mood normal. [] Current Patient Data Vital Signs Vital Signs Date Time Temp Pulse Resp B/P (MAP) Pulse Ox O2 Delivery O2 Flow Rate FiO2 12/07/18 15:15 18 12/07/18 13:17 97.2 86 127/62 (83) 95 Room Air 97.2 EKG EKG EKG reviewed, heart rate 70, normal sinus rhythm, no evidence of acute ST e levation.[] Interpretation Time: EKG interpretation 1406 Radiology/Procedures Radiology/Procedures [facility] [address] [facility] [place] [address] IMAGING REPORT Signed PATIENT: ASPEN AYERS GACCOUNT: [id number] : 1935 LOCATION: ER AGE: 83 SEX: F EXAM STATUS: PRE ER ORD. PHYSICIAN: GARRETT HYATT MD REASON: hip pain PROCEDURE: CHEST AP ONLY Single AP view of the chest. Comparison: 08/06/2016. Indication: Preop hip pain with fracture Findings: Right humeral arthroplasty changes are reidentified. The heart is enlarged but stable. There is no pneumothorax or effusion. No air space or interstitial disease. Thoracic fusion hardware is reidentified. Impression: 1. No acute cardiopulmonary process. Electronically signed by: Carrillo Randall MD (12/07/2018 2:05 PM) [facility] DICTATED and SIGNED BY: CARRILLO RANDALL MD DATE: 12/07/181404 [] [facility] [address] [place] [address] IMAGING REPORT Signed PATIENT: ASPEN AYERS GACCOUNT: [id number] : 1935 LOCATION: ER AGE: 83 SEX: F EXAM STATUS: PRE ER ORD. PHYSICIAN: GARRETT HYATT MD REASON: fall, left leg shortened and externally rotated PROCEDURE: HIP LEFT 2V WITH PELVIS Study: HIP LEFT 2V WITH PELVIS Indication: Fall. Comparison: None. Findings: Comminuted intertrochanteric femur fracture on the left. The femoral head/neck is tilted near horizontal as well as displaced anteriorly and a degree of foreshortening is present as well. The femoral head remains well-seated within the acetabulum. Taking into consideration marked osteopenia a definite additional fracture is not identified elsewhere throughout the pelvis though the sacrum is predominantly obscured. Lower lumbar vertebral body augmentation. Vascular calcifications. Impression: Comminuted intertrochanteric fracture on the left with foreshortening and cephalad angulation across the fracture site. Background marked osteopenia without definite fracture seen elsewhere. Electronically signed by: EDSON RAMOS MD (12/07/2018 2:05 PM) [facility] DICTATED and SIGNED BY: EDSON RAMOS MD DATE: 12/07/181404 Course & Med Decision Making Course & Med Decision Making Pertinent Labs and Imaging studies reviewed. (See chart for details) []83-year-old female presents to the ER via EMS after a fall at facility. Patient states she was using her walker however the walker moved and she subsequently fell. This was apparently witnessed by her . She denies any loss of consciousness, chest pain, shortness of breath, abdominal pain. She does complain of left hip pain. Movements make the pain worse. EMS provided 2 doses of fentanyl 50 �g. She appears to be pain free at this time as well as is no movement. On exam her left lower extremity is shortened and externally rotated. Imaging reviewed, left intertrochanteric hip fracture. Consultation placed with orthopedic surgery (DR. CRUZ). Discussed with ortho. Discussed with HOSPITALIST - DR. GRIFFIN for admission. Patient aware of the plan for admit. Dragon Disclaimer Dragon Disclaimer This electronic medical record was generated, in whole or in part, using a voice recognition dictation system. Departure Departure Impression: Primary Impression: Intertrochanteric fracture of left hip Additional Impression: Hypertension Disposition: 09 ADMITTED INPATIENT Referrals: ROBERT GRIFFIN MD (PCP) Problem Qualifiers GARRETT HYATT MD Dec 07, 2018 13:44
--- NOTE | 2018-12-07 14:01 | EKG ---
[facility] [address] [place] [address] Test Date: 2018-12-07 Test Time: 13:53:37 Pat Name: ASPEN AYERS Department: Room: Gender: F Rouge Miller: : 1935 Requested By: GARRETT HYATT Order Number: [id number] Reading MD: Measurements Intervals [place] Rate: 70 P: 34 ID: [id number] QRS: -15 QRSD: 76 T: 26 QT: 398 QTc: 433 Interpretive Statements SINUS RHYTHM LEFTWARD AXIS NO SPECIFIC ECG ABNORMALITIES RI6.01 No previous ECG available for comparison
--- NOTE | 2018-12-07 14:07 | RAD ---
Single AP view of the chest. Comparison: 08/06/2016. Indication: Preop hip pain with fracture Findings: Right humeral arthroplasty changes are reidentified. The heart is enlarged but stable. There is no pneumothorax or effusion. No air space or interstitial disease. Thoracic fusion hardware is reidentified. Impression: 1. No acute cardiopulmonary process. Electronically signed by: Carrillo Randall MD (12/07/2018 2:05 PM) [facility]
--- NOTE | 2018-12-07 14:08 | RAD ---
Study: HIP LEFT 2V WITH PELVIS Indication: Fall. Comparison: None. Findings: Comminuted intertrochanteric femur fracture on the left. The femoral head/neck is tilted near horizontal as well as displaced anteriorly and a degree of foreshortening is present as well. The femoral head remains well-seated within the acetabulum. Taking into consideration marked osteopenia a definite additional fracture is not identified elsewhere throughout the pelvis though the sacrum is predominantly obscured. Lower lumbar vertebral body augmentation. Vascular calcifications. Impression: Comminuted intertrochanteric fracture on the left with foreshortening and cephalad angulation across the fracture site. Background marked osteopenia without definite fracture seen elsewhere. Electronically signed by: EDSON RAMOS MD (12/07/2018 2:05 PM) [facility] [place]
[2018-12-07] MEDS ORDERED: ONDANSETRON PF 4 MG/2 ML VIAL. IV PRN (15:00)
[2018-12-07] MEDS ORDERED: fentaNYL PF VIAL 100 MCG/2 ML VIAL IV ONE (15:15)
[2018-12-07 16:00] VITALS: BP 154/77
[2018-12-07] MEDS: MORPHINE SULFATE 2 MG/ML VIAL. IV PRN (16:16)
[2018-12-07 16:45] LABS: BASO % 0 % (0-3); EOS # 0.2 x10^3/uL (0.0-0.7); EOS % 2 % (0-3); HEMATOCRIT 33.6 % (36.0-47.0); HEMOGLOBIN 11.3 g/dL (12.0-15.5); LYMPH # 1.5 x10^3/uL (1.0-4.8); LYMPH % 18 % (24-48); MEAN CORPUSCULAR HEMOGLOBIN 29 pg (25-35); MEAN CORPUSCULAR HGB CONC 34 g/dL (31-37); MEAN CORPUSCULAR VOLUME 85 fL (79-100); MONO # 0.7 x10^3/uL (0.0-1.1); MONO % 8 % (0-9); NEUT # 6.3 x10^3/uL (1.8-7.7); NEUT % 72 % (31-73); PLATELET COUNT 179 x10^3/uL (140-400); RED BLOOD COUNT 3.94 x10^6/uL (3.50-5.40); RED CELL DISTRIBUTION WIDTH 16.6 % (11.5-14.5); WHITE BLOOD COUNT 8.7 x10^3/uL (4.0-11.0)
[2018-12-07 16:47] LABS: CALCIUM 8.6 mg/dL (8.5-10.1); CREATININE 1.6 mg/dL (0.6-1.0); GFR 30.6
[2018-12-07 16:51] LABS: ALBUMIN/GLOBULIN RATIO 0.8 (1.0-1.7); TOTAL BILIRUBIN 0.1 mg/dL (0.2-1.0); TOTAL PROTEIN 6.8 g/dL (6.4-8.2)
[2018-12-07 16:54] LABS: PROTHROMBIN TIME PATIENT 13.7 SEC (11.7-14.0)
[2018-12-07] MEDS ORDERED: SERT50TA PO (17:09)
[2018-12-07] MEDS ORDERED: PANT40TA77 PO (17:09)
[2018-12-07] MEDS ORDERED: LINZESS145 MCG PO (17:09)
[2018-12-07] MEDS ORDERED: SULF1TAB24 PO (17:09)
[2018-12-07] MEDS ORDERED: SENN-37 PO (17:09)
[2018-12-07] MEDS ORDERED: FERR325T14 PO (17:09)
[2018-12-07] MEDS ORDERED: IPRA3AMP29 NEB (17:09)
[2018-12-07] MEDS ORDERED: LORA10TA68 PO (17:09)
--- NOTE | 2018-12-07 17:10 | PDOC2 ---
CONSULT Date of Consult Date of Consult DATE: 12/07/18 TIME: 17:10 Reason for Consult Reason for Consult: left hip fracture Identification/Chief Complaint Chief Complaint left hip pain after a fall Source Source: Chart review History of Present Illness Reason for Visit: 83-year-old female presented to the ER via EMS after a fall at assisted living. Patient states she was using her walker however the walker moved and she subsequently fell. This was apparently witnessed by her . She denies any loss of consciousness, chest pain, shortness of breath, abdominal pain. She does complain of left hip pain. Movements make the pain worse. EMS provided 2 doses of fentanyl 50 �g I spoke to her on 12/08/18 and she reports persistent left hip pain and inability to walk. She has lived at [facility] with her for about a year and a half. She uses a walker all the time. She said they changed out the floors from carpeted to noncarpeted about a week ago and she might not be used to the new surface yet. She said her shoes may be slippery on the bottom, and she is not sure what happened but fell to the floor. She has poor vision which contributed to her fall. She is 83 years old and she might need to use a wheelchair at times for recovery but she would like to get back to walking with a walker, (and I agree with that.) Past Medical History Past Medical History stage III CKD poor vision breathing treatments daily or more Cardiovascular: Hyperlipidemia Pulmonary: No pertinent hx GI: GERD, Other Heme/Onc: No pertinent hx Hepatobiliary: Cholelithiasis Psych: Anxiety Musculoskeletal: Other (she is able to move the other 3 extremities without difficulty, and the other 3 screws show no deformity, pain, crepitus, weakness, ischemia, loss of sensation, or malalignment. She does have a right shoulder replacement.) Rheumatologic: No pertinent hx Renal/: Chronic renal failure, UTI Endocrine: Diabetes, Hypothyroidism Past Surgical History Past Surgical History: Appendectomy, Cholecystectomy, Other (shoulder replacement) Family History Family History: Diabetes, Heart Disease Social History Social History She lives at [facility] with her ALCOHOL: none Drugs: None Lives: with Family Current Problem List Problem List Problems Medical Problems: (1) Fall Status: Acute (2) Hypertension Status: Acute (3) Intertrochanteric fracture of left hip Status: Acute (4) Left hip pain Status: Acute Current Medications Current Medications Current Medications Ondansetron HCl (Zofran) 4 mg PRN Q8HRS PRN IV NAUSEA/VOMITING; Start 12/07/18 at 15:00; Stop 12/08/18 at 14:59 Morphine Sulfate (Morphine Sulfate) 2 mg PRN Q2HR PRN IV PAIN Last administered on 12/07/18at 16:16; Start 12/07/18 at 15:00; Stop 12/08/18 at 14:59 Fentanyl Citrate (Fentanyl 2ml Vial) 50 mcg 1X ONCE IV Last administered on 12/07/18at 15:15; Start 12/07/18 at 15:15; Stop 12/07/18 at 15:16; Status DC Ondansetron HCl (Zofran) 4 mg PRN Q6HRS PRN IV NAUSEA/VOMITING; Start 12/08/18 at 07:00; Stop 12/09/18 at 06:59 Fentanyl Citrate (Fentanyl 2ml Vial) 25 mcg PRN Q5MIN PRN IV MILD PAIN 1-3; Start 12/08/18 at 07:00; Stop 12/09/18 at 06:59 Fentanyl Citrate (Fentanyl 2ml Vial) 50 mcg PRN Q5MIN PRN IV MODERATE TO SEVERE PAIN; Start 12/08/18 at 07:00; Stop 12/09/18 at 06:59 Morphine Sulfate (Morphine Sulfate) 1 mg PRN Q10MIN PRN IV SEVERE PAIN 7-10; Start 12/08/18 at 07:00; Stop 12/09/18 at 06:59 Ringer's Solution 1,000 ml @ 30 mls/hr Q24H IV ; Start 12/08/18 at 07:00; Stop 12/08/18 at 18:59 Hydromorphone HCl (Dilaudid) 0.5 mg PRN Q10MIN PRN IV SEV PAIN, Second choice; Start 12/08/18 at 07:00; Stop 12/09/18 at 06:59 Prochlorperazine Edisylate (Compazine) 5 mg PACU PRN PRN IV NAUSEA, MRX1; Start 12/08/18 at 07:00; Stop 12/09/18 at 06:59 Active Scripts Active Calcitonin-Halethorpe (Calcitonin,Halethorpe,Synthetic) 3.7 Ml [place].pump 1 [place] NS DAILY Hydrocodone-Apap 5-325 (Hydrocodone Bit/Acetaminophen) 1 Each Tablet 1 Tab PO PRN Q4HRS PRN Reported Senokot-S Tablet (Sennosides/Docusate Sodium) 1 Each Tablet 1 Tab PO DAILY Zoloft (Sertraline Hcl) 50 Mg Tablet 1 Tab PO DAILY Duoneb 0.5-3(2.5) Mg/3 Ml (Albuterol/Ipratropium) 3 Ml Ampul.neb 3 Ml NEB BID Claritin (Loratadine) 10 Mg Tablet 1 Tab PO DAILY Ferrous Sulfate 325 Mg Tablet 1 Tab PO DAILY Pantoprazole Sodium (Pantoprazole Sodium) 40 Mg Tablet.dr 40 Mg PO DAILYAC Linzess (Linaclotide) 145 Mcg Capsule 145 Mcg PO DAILY07 Bactrim Ds Tablet (Sulfamethoxazole/Trimethoprim) 1 Each Tablet 1 Tab PO BID 7 Days Myrbetriq (Mirabegron) 25 Mg Tab.er.24h 25 Mg PO Miralax (Polyethylene Glycol 3350) 17 Gm Powd.pack 1 Pkt PO DAILY PRN Novolog (Insulin Aspart) 100 Unit/1 Ml Vial 4 Unit SQ TIDBFRMEAL Amitriptyline Hcl 25 Mg Tablet 25 Mg PO DAILY Lantus (Insulin Glargine,Hum.rec.anlog) 100 Unit/1 Ml Vial 19 Unit SQ HS Tylenol With Codeine #3 Tablet (Acetaminophen/Codeine Phosphate) 1 Each Tablet 1 Each PO Q4HRS PRN Carvedilol (Carvedilol) 6.25 Mg Tablet 6.25 Mg PO BID Allergies Allergies: Coded Allergies: clarithromycin (Verified Allergy, Intermediate, 11/16/15) niacin (Verified Allergy, Intermediate, Rash, 04/06/15) Physical Exam General: Alert, Cooperative HEENT: Atraumatic, Other (dark glasses, very poor vision) Lungs: Normal air movement Heart: Regular rate Abdomen: Soft Extremities: Other (There is tenderness of the left hip. There is pain with any attempted motion. The skin is intact without ecchymosis. The extremity is shortened and externally rotated. Light touch sensation is intact at the foot and toes. Capillary refill and pulses are intact without evidence of ischemia. Slight dorsiflexion and plantarflexion are possible without evidence of sciatic nerve injury.) Neuro: Normal speech, Sensation intact Psych/Mental Status: Mental status NL, Mood NL Vitals VITALS Vital Signs Date Time Temp Pulse Resp B/P (MAP) Pulse Ox O2 Delivery O2 Flow Rate FiO2 12/07/18 16:16 Room Air 12/07/18 16:00 97.7 68 154/77 (102) 92 3.0 97.7 12/07/18 15:15 18 Labs Labs Laboratory Tests Test 12/07/18 15:30 12/07/18 16:50 White Blood Count 8.7 x10^3/uL (4.0-11.0) Red Blood Count 3.94 x10^6/uL (3.50-5.40) Hemoglobin 11.3 g/dL (12.0-15.5) Hematocrit 33.6 % (36.0-47.0) Mean Corpuscular Volume 85 fL (79-100) Mean Corpuscular Hemoglobin 29 pg (25-35) Mean Corpuscular Hemoglobin Concent 34 g/dL (31-37) Red Cell Distribution Width 16.6 % (11.5-14.5) Platelet Count 179 x10^3/uL (140-400) Neutrophils (%) (Auto) 72 % (31-73) Lymphocytes (%) (Auto) 18 % (24-48) Monocytes (%) (Auto) 8 % (0-9) Eosinophils (%) (Auto) 2 % (0-3) Basophils (%) (Auto) 0 % (0-3) Neutrophils # (Auto) 6.3 x10^3/uL (1.8-7.7) Lymphocytes # (Auto) 1.5 x10^3/uL (1.0-4.8) Monocytes # (Auto) 0.7 x10^3/uL (0.0-1.1) Eosinophils # (Auto) 0.2 x10^3/uL (0.0-0.7) Basophils # (Auto) 0.0 x10^3/uL (0.0-0.2) Prothrombin Time 13.7 SEC (11.7-14.0) Prothromb Time International Ratio 1.1 (0.8-1.1) Sodium Level 140 mmol/L (136-145) Potassium Level 5.0 mmol/L (3.5-5.1) Chloride Level 106 mmol/L (98-107) Carbon Dioxide Level 27 mmol/L (21-32) Anion Gap 7 (6-14) Blood Urea Nitrogen 33 mg/dL (7-20) Creatinine 1.6 mg/dL (0.6-1.0) Estimated GFR (Cockcroft-Gault) 30.6 BUN/Creatinine Ratio 21 (6-20) Glucose Level 145 mg/dL (70-99) Calcium Level 8.6 mg/dL (8.5-10.1) Total Bilirubin 0.1 mg/dL (0.2-1.0) Aspartate Amino Transf (AST/SGOT) 17 U/L (15-37) Alanine Aminotransferase (ALT/SGPT) 14 U/L (14-59) Alkaline Phosphatase 85 U/L (46-116) Total Protein 6.8 g/dL (6.4-8.2) Albumin 3.0 g/dL (3.4-5.0) Albumin/Globulin Ratio 0.8 (1.0-1.7) Glucose (Fingerstick) 179 mg/dL (70-99) Laboratory Tests Test 12/07/18 15:30 12/07/18 16:50 White Blood Count 8.7 x10^3/uL (4.0-11.0) Red Blood Count 3.94 x10^6/uL (3.50-5.40) Hemoglobin 11.3 g/dL (12.0-15.5) Hematocrit 33.6 % (36.0-47.0) Mean Corpuscular Volume 85 fL (79-100) Mean Corpuscular Hemoglobin 29 pg (25-35) Mean Corpuscular Hemoglobin Concent 34 g/dL (31-37) Red Cell Distribution Width 16.6 % (11.5-14.5) Platelet Count 179 x10^3/uL (140-400) Neutrophils (%) (Auto) 72 % (31-73) Lymphocytes (%) (Auto) 18 % (24-48) Monocytes (%) (Auto) 8 % (0-9) Eosinophils (%) (Auto) 2 % (0-3) Basophils (%) (Auto) 0 % (0-3) Neutrophils # (Auto) 6.3 x10^3/uL (1.8-7.7) Lymphocytes # (Auto) 1.5 x10^3/uL (1.0-4.8) Monocytes # (Auto) 0.7 x10^3/uL (0.0-1.1) Eosinophils # (Auto) 0.2 x10^3/uL (0.0-0.7) Basophils # (Auto) 0.0 x10^3/uL (0.0-0.2) Prothrombin Time 13.7 SEC (11.7-14.0) Prothromb Time International Ratio 1.1 (0.8-1.1) Sodium Level 140 mmol/L (136-145) Potassium Level 5.0 mmol/L (3.5-5.1) Chloride Level 106 mmol/L (98-107) Carbon Dioxide Level 27 mmol/L (21-32) Anion Gap 7 (6-14) Blood Urea Nitrogen 33 mg/dL (7-20) Creatinine 1.6 mg/dL (0.6-1.0) Estimated GFR (Cockcroft-Gault) 30.6 BUN/Creatinine Ratio 21 (6-20) Glucose Level 145 mg/dL (70-99) Calcium Level 8.6 mg/dL (8.5-10.1) Total Bilirubin 0.1 mg/dL (0.2-1.0) Aspartate Amino Transf (AST/SGOT) 17 U/L (15-37) Alanine Aminotransferase (ALT/SGPT) 14 U/L (14-59) Alkaline Phosphatase 85 U/L (46-116) Total Protein 6.8 g/dL (6.4-8.2) Albumin 3.0 g/dL (3.4-5.0) Albumin/Globulin Ratio 0.8 (1.0-1.7) Glucose (Fingerstick) 179 mg/dL (70-99) Images Images Report reviewed, images independently reviewed. Left hip intertrochanteric fracture, mildly displaced, and extension below the greater trochanter likely will require a long nail especially with such severe underlying osteopenia. [facility] [address] [facility] [place], [place] [id number] IMAGING REPORT Signed PATIENT: ASPEN AYERS ACCOUNT: [id number] : 1935 LOCATION: ER AGE: 83 SEX: F EXAM STATUS: PRE ER ORD. PHYSICIAN: GARRETT HYATT MD REASON: fall, left leg shortened and externally rotated PROCEDURE: HIP LEFT 2V WITH PELVIS Study: HIP LEFT 2V WITH PELVIS Indication: Fall. Comparison: None. Findings: Comminuted intertrochanteric femur fracture on the left. The femoral head/neck is tilted near horizontal as well as displaced anteriorly and a degree of foreshortening is present as well. The femoral head remains well-seated within the acetabulum. Taking into consideration marked osteopenia a definite additional fracture is not identified elsewhere throughout the pelvis though the sacrum is predominantly obscured. Lower lumbar vertebral body augmentation. Vascular calcifications. Impression: Comminuted intertrochanteric fracture on the left with foreshortening and cephalad angulation across the fracture site. Background marked osteopenia without definite fracture seen elsewhere. Electronically signed by: EDSON RAMOS MD (12/07/2018 2:05 PM) [facility] DICTATED and SIGNED BY: EDSON RAMOS MD DATE: 12/07/18 1402 Assessment/Plan Assessment/Plan Tentative surgery tomorrow (12/08). NPO after midnight On 12/08 she and I discussed operative versus nonoperative management. I recommend surgery. The alternative to surgery is bedrest which is generally not well tolerated and has high risks of continued pain, bedsores, pneumonia, and blood clots. Surgery is likely safer than nonoperative treatment. Risks of intramedullary nailing would include malunion, nonunion or hardware failure requiring additional surgery, bleeding, blood clots, neurovascular injury, or other potential surgical or anesthetic complications. All of her questions about surgery were answered and she desires to proceed. ROOSEVELT CRUZ MD Dec 07, 2018 17:10
[2018-12-07] MEDS ORDERED: INFLUENZA VAX SCREEN BY RX. MC ONE (17:45)
[2018-12-07] MEDS ORDERED: POLYETHYLENE GLYCOL 3350 17 GM PACKET. PO PRN (18:45)
[2018-12-07 19:00] VITALS: BP 156/97
[2018-12-07] MEDS: CARVEDILOL 6.25 MG TABLET. PO SCH (19:00)
[2018-12-07] MEDS: ACETAMINOPHEN/CODEINE 300/30MG TABLET. PO PRN (19:37)
[2018-12-07 19:38] LABS: BILIRUBIN,URINE NEGATIVE (NEG); CLARITY,URINE CLOUDY; COLOR,URINE YELLOW; NITRITE,URINE NEGATIVE (NEG); PROTEIN,URINE NEGATIVE (NEG-TRACE)
[2018-12-07 19:45] LABS: SQUAMOUS EPITHELIAL CELL,UR MOD /LPF
[2018-12-07 19:46] LABS: BACTERIA,URINE 0 /HPF (0-FEW); RBC,URINE >40 /HPF (0-2); WBC,URINE TNTC /HPF (0-4)
[2018-12-07] MEDS: IPRATRPIUM/ALBUTEROL 0.5/2.5MG 3 ML NEBU. NEB SCH (20:18)
[2018-12-07] MEDS ORDERED: SMZ/TMP 800/160MG TABLET. PO SCH (21:00)
[2018-12-07] MEDS: INSULIN GLARGINE SYRINGE. SQ SCH (22:06)
[2018-12-07 22:50] VITALS: BP 117/51
[2018-12-08] VITALS (15 sets, daily range): BP systolic 82–133; BP diastolic 21–72
[2018-12-08] MEDS: ACETAMINOPHEN/CODEINE 300/30MG TABLET. PO PRN (00:35)
[2018-12-08] MEDS: MORPHINE SULFATE 2 MG/ML VIAL. IV PRN ×3 (01:53→12:08)
[2018-12-08] MEDS ORDERED: ROPIVacaine 0.75% PF 53.3 ML, EPINEPHrine 0.6 MG, MORPHINE PF 5 MG in IV NORMAL SALINE ... INT ART ONE (06:00)
[2018-12-08] MEDS ORDERED: ONDANSETRON PF 4 MG/2 ML VIAL. IV PRN ×2 (07:00→16:30)
[2018-12-08] MEDS: NON FORMULARY ITEM (Linaclotide (Linzess) 145 MCG) PO SCH (07:00)
[2018-12-08] MEDS ORDERED: IV RINGERS,LACTATED 1000ML 1,000 ML IV SCH (07:00)
[2018-12-08] MEDS ORDERED: MORPHINE SULFATE 2 MG/ML VIAL. IV PRN ×2 (07:00→16:30)
[2018-12-08] MEDS ORDERED: fentaNYL PF VIAL 100 MCG/2 ML VIAL IV PRN ×2 (07:00→16:30)
[2018-12-08] MEDS ORDERED: HYDROmorphone 2 MG/ML VIAL IV PRN (07:00)
[2018-12-08] MEDS ORDERED: PROCHLORPERAZINE 10 MG/2 ML VIAL. IV PRN (07:00)
[2018-12-08] MEDS: IPRATRPIUM/ALBUTEROL 0.5/2.5MG 3 ML NEBU. NEB SCH ×2 (07:26→19:31)
[2018-12-08] MEDS: PANTOPRAZOLE 40 MG TABLET.DR. PO SCH (07:30)
[2018-12-08] MEDS: CARVEDILOL 6.25 MG TABLET. PO SCH ×2 (08:00→17:00)
[2018-12-08] MEDS: INSULIN LISPRO 300 UNITS/3 ML VIAL. SQ SCH ×3 (08:00→18:35)
[2018-12-08] MEDS ORDERED: [UNRECOGNIZED DRUG - REMARK] INT ART ONE ×4 (08:00)
[2018-12-08] MEDS: AMITRIPTYLINE HCL 25 MG TABLET. PO SCH (08:27)
[2018-12-08] MEDS: SENNOSIDES/DOCUSATE 8.6/50MG TABLET. PO SCH (08:27)
[2018-12-08] MEDS: SERTRALINE 50 MG TABLET. PO SCH (08:27)
[2018-12-08] MEDS: FERROUS SULFATE 325 MG TABLET. PO SCH (08:27)
[2018-12-08] MEDS: CETIRIZINE HCL 10 MG TABLET. PO SCH (08:27)
[2018-12-08] MEDS: cefTRIAXone IV Push 1 GM VIAL. IVP SCH (08:30)
[2018-12-08] MEDS ORDERED: SMZ/TMP 800/160MG TABLET. PO SCH (09:00)
[2018-12-08] MEDS ORDERED: FLU VAX QS 2019-20 (36MOS+)/PF 0.5 ML SYRINGE. VAX IM ONE (09:00)
[2018-12-08] MEDS: CALCITONIN,SALMON NASAL 200 UNITS/SPRAY 3.7ML BOTTLE. NS SCH (09:00)
--- NOTE | 2018-12-08 09:04 | HP ---
ADMIT DATE: 12/07/2018 CHIEF COMPLAINT AND HISTORY OF PRESENT ILLNESS: This 83-year-old white female is well known to me. The patient is a alf resident at [facility], tripped while using her walker on the day of admission, sustaining a left intertrochanteric hip fracture and was admitted for the same. PAST MEDICAL HISTORY: Remarkable for prior fall with right humeral fracture with repair. She has a history of type 2 diabetes, diverticulitis, hyperlipidemia, GERD, anxiety, hypothyroidism, chronic kidney disease, hypertension, more recent history of some auditory hallucinations, which are music she heard as a child and have been pleasant for her, so we have not addressed this. PAST SURGICAL HISTORY: Remarkable for prior lumbar decompression, cholecystectomy, right humeral surgery and prior kyphoplasty. MEDICATIONS: Brought with the patient, listed on the computer and have been addressed. ALLERGIES: SHE IS ALLERGIC TO NIACIN AND CLARITHROMYCIN. SOCIAL HISTORY: The patient is a alf resident, lives with her in same room at [facility]. She is a nonsmoker, nondrinker, does not use drugs. FAMILY HISTORY: Noncontributory. REVIEW OF SYSTEMS: Remarkable for the left hip pain and her ongoing problems with abdominal pain and constipation. PHYSICAL EXAMINATION: GENERAL: She is well-developed, well-nourished white female, in no acute distress, lying in bed. VITAL SIGNS: Stable. She is afebrile. HEAD, EYES, EARS, NOSE AND THROAT: Unremarkable. NECK: Supple without adenopathy or thyromegaly. CHEST: Clear to auscultation and percussion. HEART: Regular rate and rhythm without S3, S4 or murmur. ABDOMEN: Soft, nontender, without hepatosplenomegaly or masses. EXTREMITIES: Reveal the left leg to be shortened and ____ externally rotated consistent with a hip fracture. She is tender over the lateral hip area. There is no significant edema present. NEUROLOGIC: She is intact. LABORATORY DATA: Initial laboratory includes a CBC that is unremarkable. Chemistry panel showing a creatinine of 1.6. Sugars have been anywhere from 139 to 291 since admission. INR is 1.1. Urinalysis shows evidence of urinary tract infection, but she was just started a couple of days ago on Bactrim with sensitivities back on the organisms suggesting that should cover the urinary tract infection. IMPRESSION: 1. Fall with left intertrochanteric hip fracture. 2. Other problems listed above. PLAN: Continue present care. Ortho has been consulted. She is medically cleared for surgery. The patient will be monitored, managed and treated appropriately. ROBERT GRIFFIN MD DR: MAXIMO/jong JOB#: [id number] / [id number]
[2018-12-08] MEDS ORDERED: DEXAMETHASONE SOD PHOS 4 MG/ML VIAL ONE (09:27)
[2018-12-08] MEDS ORDERED: LIDOCAINE 2% PF 5 ML VIAL. ONE (09:27)
[2018-12-08] MEDS ORDERED: PROPOFOL 20 ML IV ONE (09:27)
[2018-12-08] MEDS ORDERED: ONDANSETRON PF 4 MG/2 ML VIAL. ONE (09:27)
[2018-12-08] MEDS ORDERED: SEVOFLURANE 61 TO 120 MINUTES. IH ONE (09:27)
[2018-12-08] MEDS: IV NORMAL SALINE 1000ML BAG 1,000 ML IV SCH ×2 (09:34→17:27)
[2018-12-08] MEDS ORDERED: fentaNYL PF VIAL 100 MCG/2 ML VIAL ONE ×2 (10:13→11:21)
--- NOTE | 2018-12-08 10:52 | PDOC4 ---
Operative Note Operative Note Date of Procedure: December 08, 2018 Pre-Op Diagnosis: S72.142A Displaced intertrochanteric fracture of left femur, initial encounter for closed fracture Post-Op Diagnosis: same Procedure: CPT 86111 left hip treatment of intertrochanteric femoral fracture with intramedullary implant, with interlocking screws Surgeon: Roosevelt Edwards MD Sand Screener Operator: HUMERA Del Angel Anesthesia Type: General EBL: 100 mL Specimens Obtained: none Complications: None Implant Company: [employer] Implants: Gamma 3 system Long Nail Kit R1.5 left 13 mm x 360 mm x 125� Gamma 3 system Lag Screw Titanium 10.5 mm x80 mm; locking screw fully threaded 5 mm x 42.5 mm INDICATION FOR PROCEDURE: This patient is 83 years old, and fell, sustaining a left hip fracture. X-rays show an unstable hip fracture. The patient and I discussed the risks, benefits and alternatives of treatment. The alternative for treatment is bedrest, which I generally do not recommend. I recommended intramedullary nailing, and I talked to her about the potential risks of this, including bleeding, infection, blood clots, malunion, nonunion or other potential surgical or anesthetic complications. All of the questions about surgery were answered, and she desired to proceed. A written consent was obtained. PROCEDURE IN DETAIL: The patient was identified in the preoperative holding area. The correct left hip was marked by me. The patient was taken to the operating room, where the patient was anesthetized by the Department of Anesthesia. Preoperative antibiotics were given intravenously. The HANA table was used and the well leg was placed in a padded lithotomy leg grullon while the foot of the left leg was placed in a traction foot boot. A time-out procedure was performed. The image intensifier was used, and a preliminary reduction performed. All of the images were interpreted intraoperatively by me, and the image intensifier was used throughout the case. The left hip area was prepared in sterile fashion with ChloraPrep solution and a sterile barrier Ioban hip drape was used. An incision was made over the superior aspect of the greater trochanter. A 3.2 mm guide pin was placed at the tip of the greater trochanter, and advanced into the intramedullary canal. The one step conical reamer was used over the guidewire, and a reamer sleeve was used to protect the soft tissues. A long guide pin was placed down the intramedullary canal and the length was measured. The nail length was chosen based on that measurement. The canal was sequentially reamed for a long nail until intramedullary chatter occurred. The nail diameter was chosen based on the intramedullary chatter. The chosen nail was attached to the targeting device with the Nail Holding Screw. The nail was placed down the canal on the targeting device, and the guide wire was removed. A second incision was now used over the lower part of the greater trochanter, to place a guide pin through the guide, near the center-center position of the femoral head, and measured. The tunnel for the lag screw was reamed using the cannulated Lag Screw Step Drill. The chosen lag screw was inserted using the guide and advanced until there was a low tip-apex distance, by using sequential checks on the image intensifier. Traction on the HANA table was released. A Set Screw was now placed to lock the Lag Screw. Finally, a 5.0 mm diameter Distal Cross Lock Screw was placed distally near the knee, using a freehand technique and the image intensifier, after predrilling. Satisfactory fracture reduction and hardware position was obtained using image intensifier views in multiple planes. Copious irrigation was used and the fascia was closed with #2 Vicryl. I used a multidrug injection for hemostasis and pain relief which includes ropivacaine, epinephrine, and morphine. Bovie electrocautery was used for hemostasis. My educational assistant completed the closure with 2-0 Vicryl and edy. A bulky sterile dressing was applied. The patient was gently transferred from the fracture table back to a hospital bed. There were no apparent complications. ROOSEVELT EDWARDS MD Dec 08, 2018 10:52
[2018-12-08] MEDS: fentaNYL PF VIAL 100 MCG/2 ML VIAL IV PRN ×2 (11:27→11:44)
[2018-12-08] MEDS ORDERED: MORPHINE SULFATE 2 MG/ML VIAL. ONE (11:56)
[2018-12-08] MEDS ORDERED: HYDROcodone/APAP 7.5/325MG 1 TAB TABLET PO PRN ×2 (16:30)
[2018-12-08] MEDS ORDERED: DEXTROSE 50% 25 GM / 50ML DISP.SYRIN. IV PRN (16:30)
[2018-12-08] MEDS ORDERED: MORPHINE SULFATE 4 MG/ML VIAL. IV PRN (16:30)
[2018-12-08] MEDS ORDERED: IV DEXTROSE 5% 250 ML BAG. IV PRN (16:30)
[2018-12-08] MEDS ORDERED: POLYETHYLENE GLYCOL 3350 17 GM PACKET. PO PRN (16:30)
[2018-12-08] MEDS ORDERED: IV NORMAL SALINE 500ML BAG 500 ML IV ONE (16:30)
[2018-12-08] MEDS ORDERED: oxyCODONE IR 5 MG TABLET PO PRN (16:30)
[2018-12-08] MEDS: IV 1/2 NORMAL SALINE 1,000 ML IV SCH ×2 (17:56→21:19)
[2018-12-08] MEDS: ceFAZolin SODIUM IV Push 1 GM VIAL. IVP SCH ×2 (17:57→23:17)
[2018-12-08] MEDS ORDERED: IV 1/2 NORMAL SALINE 500 ML IV ONE (20:00)
[2018-12-08 20:20] LABS: HEMATOCRIT 27.6 % (36.0-47.0)
[2018-12-08] MEDS: ASPIRIN ENTERIC COATED 325 MG TABLET.DR. PO SCH (21:20)
[2018-12-08] MEDS: INSULIN GLARGINE SYRINGE. SQ SCH (21:21)
[2018-12-09] VITALS (15 sets, daily range): BP systolic 81–134; BP diastolic 49–89
[2018-12-09] MEDS: ceFAZolin SODIUM IV Push 1 GM VIAL. IVP SCH (04:40)
[2018-12-09 05:58] LABS: HEMATOCRIT 26.4 % (36.0-47.0); HEMOGLOBIN 8.8 g/dL (12.0-15.5); RED BLOOD COUNT 3.04 x10^6/uL (3.50-5.40); RED CELL DISTRIBUTION WIDTH 16.4 % (11.5-14.5); WHITE BLOOD COUNT 8.7 x10^3/uL (4.0-11.0)
[2018-12-09] MEDS ORDERED: MAGNESIUM HYDROXIDE 2,400 MG/30 ML ORAL.SUSP. PO PRN (06:00)
[2018-12-09 06:12] LABS: CALCIUM 8.1 mg/dL (8.5-10.1); CREATININE 1.4 mg/dL (0.6-1.0); GFR 35.7; POTASSIUM 4.9 mmol/L (3.5-5.1)
[2018-12-09] MEDS: NON FORMULARY ITEM (Linaclotide (Linzess) 145 MCG) PO SCH (07:00)
[2018-12-09] MEDS: IPRATRPIUM/ALBUTEROL 0.5/2.5MG 3 ML NEBU. NEB SCH ×2 (07:54→19:51)
[2018-12-09] MEDS: INSULIN LISPRO 300 UNITS/3 ML VIAL. SQ SCH ×3 (08:00→17:08)
[2018-12-09] MEDS: CARVEDILOL 6.25 MG TABLET. PO SCH ×2 (08:00→16:40)
[2018-12-09] MEDS: SERTRALINE 50 MG TABLET. PO SCH (08:28)
[2018-12-09] MEDS: PANTOPRAZOLE 40 MG TABLET.DR. PO SCH (08:28)
[2018-12-09] MEDS: ASPIRIN ENTERIC COATED 325 MG TABLET.DR. PO SCH ×2 (08:28→20:44)
[2018-12-09] MEDS: AMITRIPTYLINE HCL 25 MG TABLET. PO SCH (08:28)
[2018-12-09] MEDS: CHOLECALCIFEROL (VITAMIN D3) 1,000 UNIT TABLET PO SCH (08:28)
[2018-12-09] MEDS: SENNOSIDES/DOCUSATE 8.6/50MG TABLET. PO SCH (08:28)
[2018-12-09] MEDS: CETIRIZINE HCL 10 MG TABLET. PO SCH (08:29)
[2018-12-09] MEDS: MULTIVITAMIN with MINERAL TABLET. PO SCH (08:29)
[2018-12-09] MEDS: FERROUS SULFATE 325 MG TABLET. PO SCH (08:29)
[2018-12-09] MEDS: IV 1/2 NORMAL SALINE 1,000 ML IV SCH ×2 (08:29→09:15)
[2018-12-09] MEDS: cefTRIAXone IV Push 1 GM VIAL. IVP SCH (08:29)
[2018-12-09] MEDS: CALCITONIN,SALMON NASAL 200 UNITS/SPRAY 3.7ML BOTTLE. NS SCH (08:30)
[2018-12-09] MEDS ORDERED: SENNOSIDES/DOCUSATE 8.6/50MG TABLET. PO SCH (09:00)
--- NOTE | 2018-12-09 11:02 | PDOC ---
GENERAL General: seen in ICU. awake and alert and in chair watching TV. chest clear, heart regular, abdomen benign, NV exam extremities ok. hypotensive(asymptomatic) after hip surgery yesterday and transferred to ICU. vss currently and afebrile. Hb 8.8, creatinine decreased to 1.4, sugars ok, and moderate protein calorie malnutrition on admission with albumin 3.0. back up to floor with therapy and to snu next week. VITAL SIGNS/I&O Vital Signs/I&O: Vital Signs Date Time Temp Pulse Resp B/P (MAP) Pulse Ox O2 Delivery O2 Flow Rate FiO2 12/09/18 10:00 88 105/60 (75) 92 Nasal Cannula 3.0 12/09/18 08:00 98.2 98.2 12/09/18 05:16 16 I & O 12/08/18 12/08/18 12/09/18 14:59 22:59 06:59 Intake Total 810 ml 1483 ml Output Total 200 ml 320 ml 315 ml Balance 610 ml -320 ml 1168 ml ALLERGIES Allergies: Allergies Coded Allergies Type Severity Reaction Last Updated Verified clarithromycin Allergy Intermediate 11/16/15 Yes niacin Allergy Intermediate Rash 04/06/15 Yes MEDS Medications: Current Medications Medications (Trade) Dose Ordered Sig/Rosa Route PRN Reason Start Time Stop Time Status Last Admin Dose Admin Morphine Sulfate (Morphine Sulfate) 2 mg PRN Q1HR PRN IV PAIN 12/08/18 16:30 12/09/18 05:16 Multivitamins (Thera M Plus) 1 tab DAILY PO 12/09/18 09:00 12/09/18 08:31 Vitamin D (Vitamin D3) 1,000 unit DAILY PO 12/09/18 09:00 12/09/18 08:31 Sodium Chloride 1,000 ml @ 75 mls/hr [id number] IV 12/08/18 16:18 12/09/18 09:15 Cefazolin Sodium (Ancef) 1 gm Q6H IVP 12/08/18 17:00 12/09/18 05:01 DC 12/09/18 04:40 Aspirin (Ecotrin) 325 mg BID PO 12/08/18 21:00 12/09/18 08:31 Sodium Chloride 500 ml @ 500 mls/hr 1X ONCE IV 12/08/18 16:30 12/08/18 17:29 DC 12/08/18 17:50 LAB Lab: Laboratory Tests Test 12/08/18 11:52 12/08/18 15:50 12/08/18 20:10 12/08/18 21:18 Glucose (Fingerstick) 167 mg/dL (70-99) H 214 mg/dL (70-99) H 226 mg/dL (70-99) H Hemoglobin 9.0 g/dL (12.0-15.5) L Hematocrit 27.6 % (36.0-47.0) L Mean Corpuscular Hemoglobin Concent 33 g/dL (31-37) Test 12/09/18 05:00 White Blood Count 8.7 x10^3/uL (4.0-11.0) Red Blood Count 3.04 x10^6/uL (3.50-5.40) L Hemoglobin 8.8 g/dL (12.0-15.5) L Hematocrit 26.4 % (36.0-47.0) L Mean Corpuscular Volume 87 fL (79-100) Mean Corpuscular Hemoglobin 29 pg (25-35) Mean Corpuscular Hemoglobin Concent 33 g/dL (31-37) Red Cell Distribution Width 16.4 % (11.5-14.5) H Platelet Count 145 x10^3/uL (140-400) Sodium Level 139 mmol/L (136-145) Potassium Level 4.9 mmol/L (3.5-5.1) Chloride Level 107 mmol/L (98-107) Carbon Dioxide Level 23 mmol/L (21-32) Anion Gap 9 (6-14) Blood Urea Nitrogen 27 mg/dL (7-20) H Creatinine 1.4 mg/dL (0.6-1.0) H Estimated GFR (Cockcroft-Gault) 35.7 Glucose Level 138 mg/dL (70-99) H Calcium Level 8.1 mg/dL (8.5-10.1) L Laboratory Tests 12/08/18 20:10 12/09/18 05:00 Laboratory Tests 12/09/18 05:00 ROBERT GRIFFIN MD Dec 09, 2018 11:02
[2018-12-09] MEDS: ACETAMINOPHEN/CODEINE 300/30MG TABLET. PO PRN ×2 (11:36→20:44)
[2018-12-09] MEDS: LACTOBACILLUS RHAMNOSUS GG 1 CAPSULE. PO SCH ×2 (12:06→20:44)
[2018-12-09] MEDS: IV NORMAL SALINE 1000ML BAG 1,000 ML IV SCH (12:25)
[2018-12-09] MEDS ORDERED: BISACODYL 10 MG SUPP.RECT. PR PRN (16:00)
--- NOTE | 2018-12-09 16:22 | PDOC ---
PROGRESS NOTES Subjective Subjective Her left hip and thigh feel better after the fracture surgery. She was in ICU overnight due to low blood pressure at that same is resolved now. She again mentioned the new floors at [facility], which she says were converted to a smooth wood floors which she said looked nice but seem like she is had di fficulty walking on them since they were installed. Objective Vital Signs Vital Signs Date Time Temp Pulse Resp B/P (MAP) Pulse Ox O2 Delivery O2 Flow Rate FiO2 12/09/18 16:00 98.2 83 18 109/59 (76) 95 Room Air 98.2 12/09/18 13:37 1.0 Physical Exam The left hip dressing is dry. The thigh is soft and minimally tender. She has good active range of motion of the foot and good capillary refill and sensation. Gross alignment appears normal now. Labs Laboratory Tests Test 12/07/18 16:50 12/07/18 19:30 12/07/18 21:48 12/08/18 07:49 Glucose (Fingerstick) 179 mg/dL (70-99) 291 mg/dL (70-99) 139 mg/dL (70-99) Urine Collection Type Unknown Urine Color Yellow Urine Clarity Cloudy Urine pH 6.0 Urine Specific Greene 1.015 Urine Protein Negative mg/dL (NEG-TRACE) Urine Glucose (UA) Negative mg/dL (NEG) Urine Ketones (Stick) Negative mg/dL (NEG) Urine Blood Large (NEG) Urine Nitrite Negative (NEG) Urine Bilirubin Negative (NEG) Urine Urobilinogen Dipstick 1.0 mg/dL (0.2 mg/dL) Urine Leukocyte Esterase Large (NEG) Urine RBC >40 /HPF (0-2) Urine WBC Tntc /HPF (0-4) Urine Squamous Epithelial Cells Mod /LPF Urine Bacteria 0 /HPF (0-FEW) Nasal Screen MRSA (PCR) Positive (Negative) Test 12/08/18 11:52 12/08/18 15:50 12/08/18 20:10 12/08/18 21:18 Glucose (Fingerstick) 167 mg/dL (70-99) 214 mg/dL (70-99) 226 mg/dL (70-99) Hemoglobin 9.0 g/dL (12.0-15.5) Hematocrit 27.6 % (36.0-47.0) Mean Corpuscular Hemoglobin Concent 33 g/dL (31-37) Test 12/09/18 05:00 12/09/18 08:13 12/09/18 12:06 White Blood Count 8.7 x10^3/uL (4.0-11.0) Red Blood Count 3.04 x10^6/uL (3.50-5.40) Hemoglobin 8.8 g/dL (12.0-15.5) Hematocrit 26.4 % (36.0-47.0) Mean Corpuscular Volume 87 fL (79-100) Mean Corpuscular Hemoglobin 29 pg (25-35) Mean Corpuscular Hemoglobin Concent 33 g/dL (31-37) Red Cell Distribution Width 16.4 % (11.5-14.5) Platelet Count 145 x10^3/uL (140-400) Sodium Level 139 mmol/L (136-145) Potassium Level 4.9 mmol/L (3.5-5.1) Chloride Level 107 mmol/L (98-107) Carbon Dioxide Level 23 mmol/L (21-32) Anion Gap 9 (6-14) Blood Urea Nitrogen 27 mg/dL (7-20) Creatinine 1.4 mg/dL (0.6-1.0) Estimated GFR (Cockcroft-Gault) 35.7 Glucose Level 138 mg/dL (70-99) Calcium Level 8.1 mg/dL (8.5-10.1) Glucose (Fingerstick) 107 mg/dL (70-99) 146 mg/dL (70-99) Laboratory Tests Test 12/08/18 20:10 12/08/18 21:18 12/09/18 05:00 12/09/18 08:13 Hemoglobin 9.0 g/dL (12.0-15.5) 8.8 g/dL (12.0-15.5) Hematocrit 27.6 % (36.0-47.0) 26.4 % (36.0-47.0) Mean Corpuscular Hemoglobin Concent 33 g/dL (31-37) 33 g/dL (31-37) Glucose (Fingerstick) 226 mg/dL (70-99) 107 mg/dL (70-99) White Blood Count 8.7 x10^3/uL (4.0-11.0) Red Blood Count 3.04 x10^6/uL (3.50-5.40) Mean Corpuscular Volume 87 fL (79-100) Mean Corpuscular Hemoglobin 29 pg (25-35) Red Cell Distribution Width 16.4 % (11.5-14.5) Platelet Count 145 x10^3/uL (140-400) Sodium Level 139 mmol/L (136-145) Potassium Level 4.9 mmol/L (3.5-5.1) Chloride Level 107 mmol/L (98-107) Carbon Dioxide Level 23 mmol/L (21-32) Anion Gap 9 (6-14) Blood Urea Nitrogen 27 mg/dL (7-20) Creatinine 1.4 mg/dL (0.6-1.0) Estimated GFR (Cockcroft-Gault) 35.7 Glucose Level 138 mg/dL (70-99) Calcium Level 8.1 mg/dL (8.5-10.1) Test 12/09/18 12:06 Glucose (Fingerstick) 146 mg/dL (70-99) Assessment Assessment Postoperative day 1 after left hip long gamma nail for left intertrochanteric fracture Plan Plan of Care She may weight-bear as tolerated. DVT prophylaxis, probably aspirin twice a day. Mobilization. Discharge planning. ROOSEVELT CRUZ MD Dec 09, 2018 16:22
[2018-12-09 17:29] LABS: HEMATOCRIT 24.1 % (36.0-47.0)
[2018-12-09] MEDS: INSULIN GLARGINE SYRINGE. SQ SCH (20:46)
[2018-12-10] MEDS: IV NORMAL SALINE 1000ML BAG 1,000 ML IV SCH ×2 (01:45→08:35)
[2018-12-10 04:00] VITALS: BP 114/49
[2018-12-10 04:07] LABS: HEMATOCRIT 22.3 % (36.0-47.0); HEMOGLOBIN 7.5 g/dL (12.0-15.5)
[2018-12-10] MEDS: NON FORMULARY ITEM (Linaclotide (Linzess) 145 MCG) PO SCH (05:43)
[2018-12-10] MEDS: PANTOPRAZOLE 40 MG TABLET.DR. PO SCH (05:43)
[2018-12-10] MEDS: ACETAMINOPHEN/CODEINE 300/30MG TABLET. PO PRN ×2 (05:44→10:00)
[2018-12-10 07:00] VITALS: BP 152/62
[2018-12-10] MEDS: CALCITONIN,SALMON NASAL 200 UNITS/SPRAY 3.7ML BOTTLE. NS SCH (08:28)
[2018-12-10] MEDS: CETIRIZINE HCL 10 MG TABLET. PO SCH (08:31)
[2018-12-10] MEDS: INSULIN LISPRO 300 UNITS/3 ML VIAL. SQ SCH ×3 (08:32→17:36)
[2018-12-10] MEDS: AMITRIPTYLINE HCL 25 MG TABLET. PO SCH (08:33)
[2018-12-10] MEDS: CHOLECALCIFEROL (VITAMIN D3) 1,000 UNIT TABLET PO SCH (08:33)
[2018-12-10] MEDS: cefTRIAXone IV Push 1 GM VIAL. IVP SCH (08:33)
[2018-12-10] MEDS: SERTRALINE 50 MG TABLET. PO SCH (08:33)
[2018-12-10] MEDS: FERROUS SULFATE 325 MG TABLET. PO SCH (08:33)
[2018-12-10] MEDS: MULTIVITAMIN with MINERAL TABLET. PO SCH (08:33)
[2018-12-10] MEDS: SENNOSIDES/DOCUSATE 8.6/50MG TABLET. PO SCH (08:33)
[2018-12-10] MEDS: ASPIRIN ENTERIC COATED 325 MG TABLET.DR. PO SCH ×2 (08:33→20:23)
[2018-12-10] MEDS: LACTOBACILLUS RHAMNOSUS GG 1 CAPSULE. PO SCH ×2 (08:33→20:23)
[2018-12-10] MEDS: CARVEDILOL 6.25 MG TABLET. PO SCH ×2 (08:34→17:22)
[2018-12-10] MEDS: IPRATRPIUM/ALBUTEROL 0.5/2.5MG 3 ML NEBU. NEB SCH ×2 (08:52→20:11)
[2018-12-10] MEDS: LUBIPROSTONE 8 MCG CAPSULE PO SCH ×2 (10:00→17:22)
[2018-12-10 11:00] VITALS: BP 125/61
[2018-12-10 15:00] VITALS: BP 132/59
[2018-12-10 19:20] VITALS: BP 118/53
--- NOTE | 2018-12-10 19:46 | PDOC ---
GENERAL General: vss and afebrile. awake and alet and denies any major complaints. chest clear, heart regular, abdomen benign, nv left leg ok. Hb down to 7.5 but asymptomatic from same and will follow. no further hypotension. encouraged therapy. VITAL SIGNS/I&O Vital Signs/I&O: Vital Signs Date Time Temp Pulse Resp B/P (MAP) Pulse Ox O2 Delivery O2 Flow Rate FiO2 12/10/18 17:36 86 132/59 12/10/18 15:00 97.9 18 100 Room Air 97.9 12/10/18 11:43 2.0 I & O 12/09/18 12/09/18 12/10/18 15:00 23:00 07:00 Intake Total 340 ml 100 ml Output Total 700 ml 350 ml 650 ml Balance -700 ml -10 ml -550 ml ALLERGIES Allergies: Allergies Coded Allergies Type Severity Reaction Last Updated Verified clarithromycin Allergy Intermediate 11/16/15 Yes niacin Allergy Intermediate Rash 04/06/15 Yes I S O L A T I O N *CONTACT* Allergy Unknown 12/10/18 Yes MEDS Medications: Current Medications Medications (Trade) Dose Ordered Sig/Rosa Route PRN Reason Start Time Stop Time Status Last Admin Dose Admin Lubiprostone (Amitiza) 24 mcg BIDWMEALS PO 12/10/18 09:30 12/10/18 17:36 LAB Lab: Laboratory Tests Test 12/09/18 20:41 12/10/18 03:55 12/10/18 07:49 12/10/18 11:14 Glucose (Fingerstick) 170 mg/dL (70-99) H 159 mg/dL (70-99) H 147 mg/dL (70-99) H Hemoglobin 7.5 g/dL (12.0-15.5) L Hematocrit 22.3 % (36.0-47.0) L Mean Corpuscular Hemoglobin Concent 34 g/dL (31-37) Test 12/10/18 16:42 Glucose (Fingerstick) 217 mg/dL (70-99) H Laboratory Tests 12/10/18 03:55 ROBERT GRIFFIN MD Dec 10, 2018 19:46
[2018-12-10] MEDS: INSULIN GLARGINE SYRINGE. SQ SCH (20:32)
[2018-12-10 23:42] VITALS: BP 149/70
[2018-12-11 03:22] VITALS: BP 174/87
[2018-12-11] MEDS: ACETAMINOPHEN/CODEINE 300/30MG TABLET. PO PRN ×2 (03:49→22:03)
[2018-12-11] MEDS: IV NORMAL SALINE 1000ML BAG 1,000 ML IV SCH ×2 (04:17→17:45)
[2018-12-11] MEDS: PANTOPRAZOLE 40 MG TABLET.DR. PO SCH (05:57)
[2018-12-11 05:59] LABS: BASO % 0 % (0-3); EOS # 0.1 x10^3/uL (0.0-0.7); EOS % 1 % (0-3); HEMATOCRIT 22.9 % (36.0-47.0); HEMOGLOBIN 7.6 g/dL (12.0-15.5); LYMPH # 1.1 x10^3/uL (1.0-4.8); LYMPH % 14 % (24-48); MEAN CORPUSCULAR HEMOGLOBIN 29 pg (25-35); MEAN CORPUSCULAR HGB CONC 33 g/dL (31-37); MEAN CORPUSCULAR VOLUME 86 fL (79-100); MONO # 0.6 x10^3/uL (0.0-1.1); MONO % 7 % (0-9); NEUT # 6.3 x10^3/uL (1.8-7.7); NEUT % 78 % (31-73); PLATELET COUNT 163 x10^3/uL (140-400); RED BLOOD COUNT 2.65 x10^6/uL (3.50-5.40); RED CELL DISTRIBUTION WIDTH 16.1 % (11.5-14.5); WHITE BLOOD COUNT 8.1 x10^3/uL (4.0-11.0)
[2018-12-11 07:00] VITALS: BP 159/77
[2018-12-11] MEDS: AMITRIPTYLINE HCL 25 MG TABLET. PO SCH (08:32)
[2018-12-11] MEDS: CARVEDILOL 6.25 MG TABLET. PO SCH ×2 (08:32→16:37)
[2018-12-11] MEDS: SERTRALINE 50 MG TABLET. PO SCH (08:32)
[2018-12-11] MEDS: CHOLECALCIFEROL (VITAMIN D3) 1,000 UNIT TABLET PO SCH (08:32)
[2018-12-11] MEDS: FERROUS SULFATE 325 MG TABLET. PO SCH (08:32)
[2018-12-11] MEDS: SENNOSIDES/DOCUSATE 8.6/50MG TABLET. PO SCH (08:32)
[2018-12-11] MEDS: CETIRIZINE HCL 10 MG TABLET. PO SCH (08:32)
[2018-12-11] MEDS: ASPIRIN ENTERIC COATED 325 MG TABLET.DR. PO SCH ×2 (08:33→22:03)
[2018-12-11] MEDS: LUBIPROSTONE 8 MCG CAPSULE PO SCH ×2 (08:33→16:37)
[2018-12-11] MEDS: MULTIVITAMIN with MINERAL TABLET. PO SCH (08:33)
[2018-12-11] MEDS: cefTRIAXone IV Push 1 GM VIAL. IVP SCH (08:33)
[2018-12-11] MEDS: LACTOBACILLUS RHAMNOSUS GG 1 CAPSULE. PO SCH ×2 (08:33→22:03)
[2018-12-11] MEDS: CALCITONIN,SALMON NASAL 200 UNITS/SPRAY 3.7ML BOTTLE. NS SCH (08:33)
[2018-12-11] MEDS: IPRATRPIUM/ALBUTEROL 0.5/2.5MG 3 ML NEBU. NEB SCH ×2 (08:40→19:21)
[2018-12-11] MEDS: INSULIN LISPRO 300 UNITS/3 ML VIAL. SQ SCH ×3 (08:45→16:41)
[2018-12-11 11:00] VITALS: BP 109/57
[2018-12-11 15:00] VITALS: BP 117/69
--- NOTE | 2018-12-11 17:57 | PDOC ---
GENERAL General: vss and afebrile. awake and alert. Hb 7.6 this am. chest clear, heart regular, abdomen benign, nv leg intact. therapy ongoing. likely back to u tomorrow. VITAL SIGNS/I&O Vital Signs/I&O: Vital Signs Date Time Temp Pulse Resp B/P (MAP) Pulse Ox O2 Delivery O2 Flow Rate FiO2 12/11/18 15:00 98.1 85 18 117/69 (85) 98 Nasal Cannula 2.0 98.1 I & O 12/10/18 12/10/18 12/11/18 15:00 23:00 07:00 Intake Total 300 ml 1320 ml 200 ml Output Total 1430 ml 425 ml Balance 300 ml -110 ml -225 ml ALLERGIES Allergies: Allergies Coded Allergies Type Severity Reaction Last Updated Verified clarithromycin Allergy Intermediate 11/16/15 Yes niacin Allergy Intermediate Rash 04/06/15 Yes I S O L A T I O N *CONTACT* Allergy Unknown 12/10/18 Yes LAB Lab: Laboratory Tests Test 12/10/18 20:26 12/11/18 05:00 12/11/18 07:30 12/11/18 11:17 Glucose (Fingerstick) 184 mg/dL (70-99) H 181 mg/dL (70-99) H 189 mg/dL (70-99) H White Blood Count 8.1 x10^3/uL (4.0-11.0) Red Blood Count 2.65 x10^6/uL (3.50-5.40) L Hemoglobin 7.6 g/dL (12.0-15.5) L Hematocrit 22.9 % (36.0-47.0) L Mean Corpuscular Volume 86 fL (79-100) Mean Corpuscular Hemoglobin 29 pg (25-35) Mean Corpuscular Hemoglobin Concent 33 g/dL (31-37) Red Cell Distribution Width 16.1 % (11.5-14.5) H Platelet Count 163 x10^3/uL (140-400) Neutrophils (%) (Auto) 78 % (31-73) H Lymphocytes (%) (Auto) 14 % (24-48) L Monocytes (%) (Auto) 7 % (0-9) Eosinophils (%) (Auto) 1 % (0-3) Basophils (%) (Auto) 0 % (0-3) Neutrophils # (Auto) 6.3 x10^3/uL (1.8-7.7) Lymphocytes # (Auto) 1.1 x10^3/uL (1.0-4.8) Monocytes # (Auto) 0.6 x10^3/uL (0.0-1.1) Eosinophils # (Auto) 0.1 x10^3/uL (0.0-0.7) Basophils # (Auto) 0.0 x10^3/uL (0.0-0.2) Test 12/11/18 16:55 Glucose (Fingerstick) 96 mg/dL (70-99) Laboratory Tests 12/11/18 05:00 ROBERT GRIFFIN MD Dec 11, 2018 17:57
[2018-12-11 19:00] VITALS: BP 128/63
[2018-12-11] MEDS: INSULIN GLARGINE SYRINGE. SQ SCH (22:10)
[2018-12-11 23:00] VITALS: BP 147/71
[2018-12-12 03:00] VITALS: BP 156/66
[2018-12-12 05:03] LABS: BASO # 0.1 x10^3/uL (0.0-0.2); BASO % 1 % (0-3); EOS # 0.3 x10^3/uL (0.0-0.7); EOS % 3 % (0-3); HEMATOCRIT 21.5 % (36.0-47.0); HEMOGLOBIN 7.3 g/dL (12.0-15.5); LYMPH # 2.3 x10^3/uL (1.0-4.8); LYMPH % 27 % (24-48); MEAN CORPUSCULAR HEMOGLOBIN 29 pg (25-35); MEAN CORPUSCULAR HGB CONC 34 g/dL (31-37); MEAN CORPUSCULAR VOLUME 86 fL (79-100); MONO # 0.8 x10^3/uL (0.0-1.1); MONO % 10 % (0-9); NEUT # 5.2 x10^3/uL (1.8-7.7); NEUT % 60 % (31-73); PLATELET COUNT 169 x10^3/uL (140-400); RED BLOOD COUNT 2.51 x10^6/uL (3.50-5.40); RED CELL DISTRIBUTION WIDTH 15.7 % (11.5-14.5); WHITE BLOOD COUNT 8.7 x10^3/uL (4.0-11.0)
[2018-12-12] MEDS: PANTOPRAZOLE 40 MG TABLET.DR. PO SCH (06:24)
[2018-12-12] MEDS: IV NORMAL SALINE 1000ML BAG 1,000 ML IV SCH (07:05)
[2018-12-12 07:15] VITALS: BP 127/59
[2018-12-12] MEDS: IPRATRPIUM/ALBUTEROL 0.5/2.5MG 3 ML NEBU. NEB SCH (07:38)
[2018-12-12] MEDS: cefTRIAXone IV Push 1 GM VIAL. IVP SCH (08:00)
--- NOTE | 2018-12-12 08:24 | PDOC ---
ORTHO PROGRESS NOTES Subjective Patient states felling somewhat better r/t pain. Post-op Day: 4 Procedure Left Hip long gamma nail for intertrochanteric hip fracture Vitals Vital Signs Date Time Temp Pulse Resp B/P (MAP) Pulse Ox O2 Delivery O2 Flow Rate FiO2 12/12/18 07:42 96 Nasal Cannula 2.0 12/12/18 07:15 98.1 84 127/59 (81) 98.1 12/11/18 15:00 18 Labs Laboratory Tests Test 12/10/18 11:14 12/10/18 16:42 12/10/18 20:26 12/11/18 05:00 Glucose (Fingerstick) 147 mg/dL (70-99) 217 mg/dL (70-99) 184 mg/dL (70-99) White Blood Count 8.1 x10^3/uL (4.0-11.0) Red Blood Count 2.65 x10^6/uL (3.50-5.40) Hemoglobin 7.6 g/dL (12.0-15.5) Hematocrit 22.9 % (36.0-47.0) Mean Corpuscular Volume 86 fL (79-100) Mean Corpuscular Hemoglobin 29 pg (25-35) Mean Corpuscular Hemoglobin Concent 33 g/dL (31-37) Red Cell Distribution Width 16.1 % (11.5-14.5) Platelet Count 163 x10^3/uL (140-400) Neutrophils (%) (Auto) 78 % (31-73) Lymphocytes (%) (Auto) 14 % (24-48) Monocytes (%) (Auto) 7 % (0-9) Eosinophils (%) (Auto) 1 % (0-3) Basophils (%) (Auto) 0 % (0-3) Neutrophils # (Auto) 6.3 x10^3/uL (1.8-7.7) Lymphocytes # (Auto) 1.1 x10^3/uL (1.0-4.8) Monocytes # (Auto) 0.6 x10^3/uL (0.0-1.1) Eosinophils # (Auto) 0.1 x10^3/uL (0.0-0.7) Basophils # (Auto) 0.0 x10^3/uL (0.0-0.2) Test 12/11/18 07:30 12/11/18 11:17 12/11/18 16:55 12/11/18 20:34 Glucose (Fingerstick) 181 mg/dL (70-99) 189 mg/dL (70-99) 96 mg/dL (70-99) 67 mg/dL (70-99) Test 12/11/18 21:35 12/12/18 03:40 12/12/18 07:41 Glucose (Fingerstick) 162 mg/dL (70-99) 95 mg/dL (70-99) White Blood Count 8.7 x10^3/uL (4.0-11.0) Red Blood Count 2.51 x10^6/uL (3.50-5.40) Hemoglobin 7.3 g/dL (12.0-15.5) Hematocrit 21.5 % (36.0-47.0) Mean Corpuscular Volume 86 fL (79-100) Mean Corpuscular Hemoglobin 29 pg (25-35) Mean Corpuscular Hemoglobin Concent 34 g/dL (31-37) Red Cell Distribution Width 15.7 % (11.5-14.5) Platelet Count 169 x10^3/uL (140-400) Neutrophils (%) (Auto) 60 % (31-73) Lymphocytes (%) (Auto) 27 % (24-48) Monocytes (%) (Auto) 10 % (0-9) Eosinophils (%) (Auto) 3 % (0-3) Basophils (%) (Auto) 1 % (0-3) Neutrophils # (Auto) 5.2 x10^3/uL (1.8-7.7) Lymphocytes # (Auto) 2.3 x10^3/uL (1.0-4.8) Monocytes # (Auto) 0.8 x10^3/uL (0.0-1.1) Eosinophils # (Auto) 0.3 x10^3/uL (0.0-0.7) Basophils # (Auto) 0.1 x10^3/uL (0.0-0.2) Laboratory Tests Test 12/11/18 11:17 12/11/18 16:55 12/11/18 20:34 12/11/18 21:35 Glucose (Fingerstick) 189 mg/dL (70-99) 96 mg/dL (70-99) 67 mg/dL (70-99) 162 mg/dL (70-99) Test 12/12/18 03:40 12/12/18 07:41 White Blood Count 8.7 x10^3/uL (4.0-11.0) Red Blood Count 2.51 x10^6/uL (3.50-5.40) Hemoglobin 7.3 g/dL (12.0-15.5) Hematocrit 21.5 % (36.0-47.0) Mean Corpuscular Volume 86 fL (79-100) Mean Corpuscular Hemoglobin 29 pg (25-35) Mean Corpuscular Hemoglobin Concent 34 g/dL (31-37) Red Cell Distribution Width 15.7 % (11.5-14.5) Platelet Count 169 x10^3/uL (140-400) Neutrophils (%) (Auto) 60 % (31-73) Lymphocytes (%) (Auto) 27 % (24-48) Monocytes (%) (Auto) 10 % (0-9) Eosinophils (%) (Auto) 3 % (0-3) Basophils (%) (Auto) 1 % (0-3) Neutrophils # (Auto) 5.2 x10^3/uL (1.8-7.7) Lymphocytes # (Auto) 2.3 x10^3/uL (1.0-4.8) Monocytes # (Auto) 0.8 x10^3/uL (0.0-1.1) Eosinophils # (Auto) 0.3 x10^3/uL (0.0-0.7) Basophils # (Auto) 0.1 x10^3/uL (0.0-0.2) Glucose (Fingerstick) 95 mg/dL (70-99) Notes awake and alert Assessment and Plan POD # 4 Left Hip long gammal nail for intertrochanteric hip fracture motor and sensation intact distally calf soft and non tender dressing dry and intact discharge planning when medically stable RAJNI JACKSON APRN Dec 12, 2018 08:24
[2018-12-12] MEDS: CALCITONIN,SALMON NASAL 200 UNITS/SPRAY 3.7ML BOTTLE. NS SCH (09:00)
[2018-12-12] MEDS: LUBIPROSTONE 8 MCG CAPSULE PO SCH (09:15)
[2018-12-12] MEDS: CHOLECALCIFEROL (VITAMIN D3) 1,000 UNIT TABLET PO SCH (09:15)
[2018-12-12] MEDS: LACTOBACILLUS RHAMNOSUS GG 1 CAPSULE. PO SCH (09:15)
[2018-12-12] MEDS: FERROUS SULFATE 325 MG TABLET. PO SCH (09:15)
[2018-12-12] MEDS: SENNOSIDES/DOCUSATE 8.6/50MG TABLET. PO SCH (09:15)
[2018-12-12] MEDS: MULTIVITAMIN with MINERAL TABLET. PO SCH (09:15)
[2018-12-12] MEDS: CETIRIZINE HCL 10 MG TABLET. PO SCH (09:15)
[2018-12-12] MEDS: SERTRALINE 50 MG TABLET. PO SCH (09:15)
[2018-12-12] MEDS: AMITRIPTYLINE HCL 25 MG TABLET. PO SCH (09:15)
[2018-12-12] MEDS: ASPIRIN ENTERIC COATED 325 MG TABLET.DR. PO SCH (09:15)
[2018-12-12] MEDS: CARVEDILOL 6.25 MG TABLET. PO SCH (09:16)
[2018-12-12] MEDS: INSULIN LISPRO 300 UNITS/3 ML VIAL. SQ SCH ×2 (09:29→12:49)
[2018-12-12 10:48] VITALS: BP 123/54
--- NOTE | 2018-12-12 10:58 | SNU/HH DC ---
DISCHARGE ORDERS DISCHARGE INFORMATION: DISCHARGE DATE: Dec 12, 2018 FINAL DIAGNOSIS Problems Medical Problems: (1) Fall Status: Acute (2) Hypertension Status: Acute (3) Intertrochanteric fracture of left hip Status: Acute (4) Left hip pain Status: Acute CONDITION ON DISCHARGE: Stable CODE STATUS: Code Status: Full USP: SNF STAY <30 DAYS: Yes HOSPICE: HOSPICE: No HOSPICE EVAL & TREAT: No LTAC: ADMIT TO LTAC: No POST DISCHARGE ORDERS: ACTIVITY ORDERS: Activity as tolerated, Progressive ambulation WEIGHT BEARING STATUS: No restrictions BATHING ORDERS: Shower-keep dressing dry DIET AFTER DISCHARGE: Regular WOUND/INCISION CARE: Change dressing CHECKS AFTER DISCHARGE: CHECKS AFTER DISCHARGE: Check blood press - daily, Check blood sugar, ac/hs TREATMENT/EQUIPMENT ORDERS: ADAPTIVE EQUIPMENT NEEDED: None RESPIRATORY EQUIPMENT NEEDED: Oxygen Physical Therapy For: Evalulation/Treatment Occupational Therapy For: Evaluation/Treatment DISCHARGE MEDICATIONS: Home Meds Active Scripts Calcitonin,[place],Synthetic (CALCITONIN-SALMON) 3.7 Ml [place].pump, 1 SPRAY NS DAILY, #1 BOT 3 Refills Prov:ROBERT GRIFFIN MD 03/25/16 Hydrocodone Bit/Acetaminophen (HYDROCODONE-APAP 5-325 ) 1 Each Tablet, 1 TAB PO PRN Q4HRS PRN for MODERATE TO SEVERE PAIN, #20 TAB 0 Refills Prov:ROBERT GRIFFIN MD 03/25/16 Reported Medications Sennosides/Docusate Sodium (SENOKOT-S TABLET) 1 Each Tablet, 1 TAB PO DAILY for constipation, #30 TAB 12/07/18 Sertraline Hcl (ZOLOFT) 50 Mg Tablet, 1 TAB PO DAILY for anxiety, #30 TAB 2 Refills 12/07/18 Ipratropium/Albuterol Sulfate (DUONEB 0.5-3(2.5) MG/3 ML) 3 Ml Ampul.neb, 3 ML NEB BID for SOA, EACH 12/07/18 Loratadine (CLARITIN) 10 Mg Tablet, 1 TAB PO DAILY for allergies, #30 TAB 5 Refills 12/07/18 Ferrous Sulfate (FERROUS SULFATE) 325 Mg Tablet, 1 TAB PO DAILY for anemia, #30 TAB 3 Refills 12/07/18 Pantoprazole Sodium (PANTOPRAZOLE SODIUM ) 40 Mg Tablet.dr, 40 MG PO DAILYAC for GERD, TAB 12/07/18 Linaclotide (LINZESS) 145 Mcg Capsule, 145 MCG PO DAILY07 for IRRITABLE BOWEL, CAP 12/07/18 Sulfamethoxazole/Trimethoprim (BACTRIM DS TABLET) 1 Each Tablet, 1 TAB PO BID for UTI for 7 Days, #14 TAB 12/07/18 Mirabegron (MYRBETRIQ) 25 Mg Tab.er.24h, 25 MG PO, TAB.SR 06/15/17 Polyethylene Glycol 3350 (MIRALAX) 17 Gm Powd.pack, 1 PKT PO DAILY PRN for CONSTIPATION, PKT 10/12/13 Insulin Aspart (NOVOLOG) 100 Unit/1 Ml Vial, 4 UNIT SQ TIDBFRMEAL for diabetes, VIAL 06/26/13 Amitriptyline Hcl (AMITRIPTYLINE HCL) 25 Mg Tablet, 25 MG PO DAILY 06/26/13 Insulin Glargine,Hum.rec.anlog (LANTUS) 100 Unit/1 Ml Vial, 19 UNIT SQ HS, VIAL 06/26/13 Acetaminophen With Codeine (TYLENOL WITH CODEINE #3 TABLET) 1 Each Tablet, 1 EACH PO Q4HRS PRN for PAIN 06/26/13 Carvedilol (CARVEDILOL ) 6.25 Mg Tablet, 6.25 MG PO BID 06/26/13 Discontinued Reported Medications Estradiol (ESTRACE) 42.5 Gm Cream.appl, 0.5 GM VG 3X/WEEK for vaginal dryness, #1 EACH 11 Refills 06/15/17 Gabapentin (GABAPENTIN ) 100 Mg Capsule, 100 MG PO TID, CAP 06/15/17 Omeprazole (OMEPRAZOLE) 20 Mg Capsule., 20 MG PO DAILY 06/26/13 ROBERT GRIFFIN MD Dec 12, 2018 10:58
[2018-12-12] MEDS ORDERED: ASPI325T11 PO (11:00)
--- NOTE | 2018-12-12 22:09 | DS ---
DATE OF DISCHARGE: 12/12/2018 DIAGNOSIS: Fall with left intertrochanteric hip fracture. ADDITIONAL DIAGNOSES: Postoperative anemia, type 2 diabetes, hyperlipidemia, anxiety, hypothyroidism, chronic kidney disease, hypertension. CHIEF COMPLAINT AND HISTORY OF PRESENT ILLNESS: This 83-year-old white female admitted after a fall at the skilled nursing, where she resides, sustaining a left intertrochanteric hip fracture. SUMMARY OF STAY: The patient was admitted and taken to surgery with open reduction and internal fixation of the hip fracture. Postoperatively, was ambulated as she could be by therapy. Hemoglobin was followed and dropped down to about 7.3 from her admission hemoglobin of 11.3. She was on iron at the time of discharge. Orthopedics started aspirin for prophylaxis for DVT following the surgery. She was ambulatory, but quite anxious about going back to the skilled nursing but was felt ready on the day of dismissal to go back over to halfway and this was accomplished. DISPOSITION: The patient is discharged back to the skilled nursing. DIET: Regular, low sweet diet. ACTIVITY: As tolerated. DISCHARGE MEDICATIONS: Listed on the med rec and have been addressed. We will continue to follow her there. ROBERT GRIFFIN MD DR: MAXIMO/jong JOB#: [id number] / [id number]
== END 2018-12-12 14:30 | disposition home or self-care (01) | DRG 481 ==
LOC: ER 13:17 → 4 NORTH 15:18 → 1 WEST ICU 12-08 19:55 → 4 NORTH 12-09 14:27
PROVIDERS: ADMIT Family Medicine; ATTEND Family Medicine
PROC: 0QS736Z Reposition Left Upper Femur with Intramedullary Internal Fixation Device, Percutaneous Approach (ICD-10-PCS; principal; 2018-12-08 09:30)
DX: S72.142A Displaced intertrochanteric fracture of left femur, initial encounter for closed fracture (principal); E44.0 Moderate protein-calorie malnutrition; N39.0 Urinary tract infection, site not specified; N18.3 Chronic kidney disease, stage 3 (moderate); I12.9 Hypertensive chronic kidney disease with stage 1 through stage 4 chronic kidney disease, or unspecified chronic kidney disease; E11.22 Type 2 diabetes mellitus with diabetic chronic kidney disease; F41.9 Anxiety disorder, unspecified; K21.9 Gastro-esophageal reflux disease without esophagitis; E78.00 Pure hypercholesterolemia, unspecified; E03.9 Hypothyroidism, unspecified; G89.29 Other chronic pain; E78.5 Hyperlipidemia, unspecified; D64.9 Anemia, unspecified; Z96.611 Presence of right artificial shoulder joint; W18.39XA Other fall on same level, initial encounter; Y93.89 Activity, other specified; Y92.129 Unspecified place in nursing home as the place of occurrence of the external cause; Y99.8 Other external cause status; Z90.49 Acquired absence of other specified parts of digestive tract; Z88.1 Allergy status to other antibiotic agents; Z88.8 Allergy status to other drugs, medicaments and biological substances; Z83.3 Family history of diabetes mellitus; Z68.22 Body mass index [BMI] 22.0-22.9, adult
CPT/HCPCS: 36415; 71045; 73502; 76000; 80048; 80053; 81001; 82306; 82962; 85014; 85018; 85025; 85027; 85610; 86850; 86900; 86901; 86920; 87086; 87641; 90471; 90686; 93005; 94640; 94760; 96374; C1713; C1887; J0171; J0630; J0690; J0696; J1100; J1815; J2001; J2270; J2405; J2704; J2795; J3010; J7030; J7040; J7620; 97110; 97116; 97530; 97535; 99285-25; G0378

== ENCOUNTER 2018-12-17 17:26 | Inpatient (IN) | payer MEDICARE, BC ==
[~2018-12-17] VITALS: Ht 157.5 cm; Wt 66.3 kg
[~2018-12-17 17:26] MED LIST changes: +ASPI325T11 PO; +FERR325T14 PO; +IPRA3AMP29 NEB; +LINZESS145 MCG PO; +LORA10TA68 PO; +PANT40TA77 PO; +SENN-37 PO; +SERT50TA PO; +SULF1TAB24 PO
[2018-12-17 18:08] LABS: BASO # 0.1 x10^3/uL (0.0-0.2); BASO % 1 % (0-3); EOS # 0.2 x10^3/uL (0.0-0.7); EOS % 2 % (0-3); HEMATOCRIT 23.6 % (36.0-47.0); HEMOGLOBIN 7.7 g/dL (12.0-15.5); LYMPH # 1.6 x10^3/uL (1.0-4.8); LYMPH % 22 % (24-48); MEAN CORPUSCULAR HEMOGLOBIN 29 pg (25-35); MEAN CORPUSCULAR HGB CONC 33 g/dL (31-37); MEAN CORPUSCULAR VOLUME 89 fL (79-100); MONO # 0.6 x10^3/uL (0.0-1.1); MONO % 8 % (0-9); NEUT # 4.9 x10^3/uL (1.8-7.7); NEUT % 67 % (31-73); PLATELET COUNT 353 x10^3/uL (140-400); RED BLOOD COUNT 2.64 x10^6/uL (3.50-5.40); RED CELL DISTRIBUTION WIDTH 17.4 % (11.5-14.5); WHITE BLOOD COUNT 7.3 x10^3/uL (4.0-11.0)
[2018-12-17 18:15] LABS: PROTHROMBIN TIME PATIENT 14.3 SEC (11.7-14.0)
[2018-12-17 18:18] LABS: GFR 23.7
[2018-12-17 18:27] LABS: ALBUMIN 2.9 g/dL (3.4-5.0); ALBUMIN/GLOBULIN RATIO 0.7 (1.0-1.7); MAGNESIUM 2.3 mg/dL (1.8-2.4); TOTAL BILIRUBIN 0.4 mg/dL (0.2-1.0); TOTAL PROTEIN 7.2 g/dL (6.4-8.2)
[2018-12-17 18:30] LABS: POTASSIUM 5.9 mmol/L (3.5-5.1)
[2018-12-17] MEDS ORDERED: IV NORMAL SALINE 1000ML BAG 1,000 ML IV ONE (19:00)
--- NOTE | 2018-12-17 19:20 | PHYS DOC ---
Past Medical History Past Medical History: Anxiety, Diabetes-Type II, Diverticulitis, GERD, High Cholesterol, Hypertension, Hypothyroid, Renal Disease, UTI, Other Additional Past Medical Histor: heart murmur, CHRONIC LOW BACK PAIN,CKD,MELENA, HEMORRHOIDS,FTT Past Surgical History: Cholecystectomy, Other Additional Past Surgical Histo: back surgery, eye surgery, right humerus surgery, KYPHOPLASTY, LEFT HIP Alcohol Use: None Drug Use: None Adult General Chief Complaint Chief Complaint: ABNORMAL LABS HPI HPI Patient is a 83 year old female sent to the ER via EMS from the [facility] with abnormal labs. EMS reports that patient's potassium is 5.8 and hemoglobin was 7.8. PT has a hx of chronic R shoulder pain and was treated at this hospital a week ago for a broke left hip. Limited HPI due to patient mental status. PT is alert to person and place, confused to date and year. Review of Systems Review of Systems Constitutional: Denies fever or chills [] HENT: Denies nasal congestion or sore throat; hard of hearing [] Respiratory: reports shortness of breath [] Cardiovascular: No additional information not addressed in HPI [] GI: Denies abdominal pain, nausea, vomiting, or diarrhea [] : Denies dysuria or hematuria [] Musculoskeletal: reports R shoulder pain Integument: Denies rash Neurologic: Denies headache Current Medications Current Medications Current Medications Medications (Trade) Dose Ordered Sig/Rosa Start Time Stop Time Status Last Admin Dose Admin Sodium Chloride 1,000 ml @ 1,000 mls/hr 1X ONCE 12/17/18 19:00 12/17/18 19:59 DC 12/17/18 19:06 1,000 MLS/HR Allergies Allergies Allergies Coded Allergies Type Severity Reaction Last Updated Verified clarithromycin Allergy Intermediate 11/16/15 Yes niacin Allergy Intermediate Rash 04/06/15 Yes I S O L A T I O N *CONTACT* Allergy Unknown 12/10/18 Yes Physical Exam Physical Exam Constitutional: Well developed, well nourished, no acute distress, ill appearance HENT: Normocephalic, atraumatic, bilateral external ears normal, oropharynx dry, nose normal. [] Eyes: PERRLA, EOMI, conjunctiva normal, no discharge. [] Neck: Normal range of motion, no stridor. [] Cardiovascular: Heart rate regular rhythm Lungs & Thorax: Bilateral breath sounds crackles throughout, diminished in bases bilat, shallow, no retractions Abdomen: Bowel sounds normal, soft, no tenderness, no masses, no pulsatile masses. [] Skin: Warm, dry, no erythema, no rash; L hip surgical incision edy intact, no drainage or erythema, bruising to L medial thigh. [] Back: No tenderness, no CVA tenderness. [] Extremities: R shoulder non tender, no cyanosis, no clubbing, no edema. [] Neurologic: Alert and oriented X 2, no focal deficits noted. [] Psychologic: Affect normal, judgement normal, mood normal. [] Current Patient Data Vital Signs Vital Signs Date Time Temp Pulse Resp B/P (MAP) Pulse Ox O2 Delivery O2 Flow Rate FiO2 12/17/18 20:39 66 18 98/45 (62) 94 12/17/18 19:45 Room Air 12/17/18 18:53 3.0 12/17/18 17:29 98.0 98.0 Lab Values Laboratory Tests Test 12/17/18 17:49 12/17/18 18:20 White Blood Count 7.3 x10^3/uL (4.0-11.0) Red Blood Count 2.64 x10^6/uL (3.50-5.40) L Hemoglobin 7.7 g/dL (12.0-15.5) L Hematocrit 23.6 % (36.0-47.0) L Mean Corpuscular Volume 89 fL (79-100) Mean Corpuscular Hemoglobin 29 pg (25-35) Mean Corpuscular Hemoglobin Concent 33 g/dL (31-37) Red Cell Distribution Width 17.4 % (11.5-14.5) H Platelet Count 353 x10^3/uL (140-400) Neutrophils (%) (Auto) 67 % (31-73) Lymphocytes (%) (Auto) 22 % (24-48) L Monocytes (%) (Auto) 8 % (0-9) Eosinophils (%) (Auto) 2 % (0-3) Basophils (%) (Auto) 1 % (0-3) Neutrophils # (Auto) 4.9 x10^3/uL (1.8-7.7) Lymphocytes # (Auto) 1.6 x10^3/uL (1.0-4.8) Monocytes # (Auto) 0.6 x10^3/uL (0.0-1.1) Eosinophils # (Auto) 0.2 x10^3/uL (0.0-0.7) Basophils # (Auto) 0.1 x10^3/uL (0.0-0.2) Segmented Neutrophils % 70 % (35-66) H Lymphocytes % 27 % (24-48) Monocytes % 3 % (0-10) Platelet Estimate Increased (ADEQUATE) Polychromasia Slight Anisocytosis Slight Schistocytes Occ Prothrombin Time 14.3 SEC (11.7-14.0) H Prothrombin Time INR 1.1 (0.8-1.1) Activated Partial Thromboplast Time 29 SEC (24-38) Sodium Level 136 mmol/L (136-145) Potassium Level 5.9 mmol/L (3.5-5.1) H Chloride Level 102 mmol/L (98-107) Carbon Dioxide Level 22 mmol/L (21-32) Anion Gap 12 (6-14) Blood Urea Nitrogen 57 mg/dL (7-20) H Creatinine 2.0 mg/dL (0.6-1.0) H Estimated GFR (Cockcroft-Gault) 23.7 BUN/Creatinine Ratio 29 (6-20) H Glucose Level 104 mg/dL (70-99) H Calcium Level 9.0 mg/dL (8.5-10.1) Magnesium Level 2.3 mg/dL (1.8-2.4) Total Bilirubin 0.4 mg/dL (0.2-1.0) Aspartate Amino Transferase (AST) 26 U/L (15-37) Alanine Aminotransferase (ALT) 16 U/L (14-59) Alkaline Phosphatase 80 U/L (46-116) Total Protein 7.2 g/dL (6.4-8.2) Albumin 2.9 g/dL (3.4-5.0) L Albumin/Globulin Ratio 0.7 (1.0-1.7) L Procalcitonin < 0.10 ng/mL (0.00-0.10) Lactic Acid Level 1.0 mmol/L (0.4-2.0) Laboratory Tests 12/17/18 17:49 Laboratory Tests 12/17/18 17:49 EKG EKG 1807- SR rate 74, no STEMI read by Mary Escobar[] Radiology/Procedures Radiology/Procedures PROCEDURE: CHEST AP ONLY Exam: Chest one view INDICATION: Low oxygen, recent surgery TECHNIQUE: Frontal view of the chest Comparisons: 12/07/2018 FINDINGS: The cardiomediastinal silhouette and pulmonary vessels are within normal limits. A few scattered areas of patchy airspace disease predominantly within the right lung. No pleural effusion. IMPRESSION: Scattered areas of patchy airspace disease bilaterally which is nonspecific may relate to multifocal pneumonia. Given history correlate with d-dimer.[] Course & Med Decision Making Course & Med Decision Making Pertinent Labs and Imaging studies reviewed. (See chart for details) dx: KORY, hyperkalemia, pneumonia EKG - NSR CXR: Scattered areas of patchy airspace disease bilaterally which is nonspecific may relate to multifocal pneumonia. CBC: Hgb 7.7 (improved from 12/09/18) Hct 23.6, RBC 2.64; CMP: K 5.9, BUN 57, Vehicle Damage Appraiser 2.0 Glucose 104, lactic acid 1.0, Otherwise unremarkable, PT/INR unremarkable PT was given 1L NS and zosyn pharmacy to dose in the ER. 2106-Spoke with Dr. Salcido who is the admitting physician, and care was assumed following discussion of patient. NS ordered at 100 ml/hr as requested. Patient's vital signs stable. Patient remains afebrile, appears nontoxic, respirations even and unlabored. Patient will be admitted to the med/tele floor. Patient's case and plan of care also discussed with Dr. Mary Aquino Disclaimer Kenia Disclaimer This electronic medical record was generated, in whole or in part, using a voice recognition dictation system. Departure Departure Impression: Primary Impression: Hyperkalemia Additional Impressions: Pneumonia KORY (acute kidney injury) Disposition: ADMITTED INPATIENT Admitting Physician: Bg Salcido Condition: STABLE Referrals: ROBERT GRIFFIN MD (PCP) Problem Qualifiers Additional Impressions: Pneumonia Pneumonia type: due to unspecified organism Laterality: bilateral Lung location: unspecified part of lung Qualified Codes: J18.9 - Pneumonia, unspecified organism VIJAY MACIAS COMIC ILLUSTRATOR Dec 17, 2018 19:20
[2018-12-17 19:57] LABS: % LYMPHS 27 % (24-48); % MONOS 3 % (0-10); % SEGS 70 % (35-66); ANISOCYTOSIS SLIGHT; PLT ESTIMATE INCREASED (ADEQUATE); POLYCHROMASIA SLIGHT; SCHISTOCYTES OCC
--- NOTE | 2018-12-17 20:58 | RAD ---
Exam: Chest one view INDICATION: Low oxygen, recent surgery TECHNIQUE: Frontal view of the chest Comparisons: 12/07/2018 FINDINGS: The cardiomediastinal silhouette and pulmonary vessels are within normal limits. A few scattered areas of patchy airspace disease predominantly within the right lung. No pleural effusion. IMPRESSION: Scattered areas of patchy airspace disease bilaterally which is nonspecific may relate to multifocal pneumonia. Given history correlate with d-dimer. Electronically signed by: Mitch Frank MD (12/17/2018 8:55 PM) [facility]
[2018-12-17] MEDS ORDERED: PIP/TAZO PER PHARMACY MC PRN (21:30)
[2018-12-17] MEDS: PIPERACILLIN/TAZOBACTAM 2.25 GM in IV NORMAL SALINE 50ML 50 ML IV SCH (21:45)
[2018-12-17] MEDS ORDERED: IV NORMAL SALINE 1000ML BAG 1,000 ML IV SCH (22:00)
[2018-12-17 23:54] VITALS: BP 88/53
[2018-12-18] MEDS ORDERED: SULF1TAB24 PO (00:12)
[2018-12-18] MEDS ORDERED: MULT-246 PO (00:12)
[2018-12-18] MEDS ORDERED: ASPI-630 PO (00:12)
[2018-12-18 02:24] VITALS: BP 114/91
[2018-12-18] MEDS ORDERED: ASCO500T2 PO (02:39)
[2018-12-18] MEDS ORDERED: ZINC220T3 PO (02:39)
[2018-12-18] MEDS: PIPERACILLIN/TAZOBACTAM 2.25 GM in IV NORMAL SALINE 50ML 50 ML IV SCH (06:22)
--- NOTE | 2018-12-18 06:51 | EKG ---
[facility] [address] [place] [address] Test Date: 2018-12-17 Test Time: 18:07:57 Pat Name: ASPEN AYERS Department: Room: 3 1 Gender: F Customer Marketing Assistant: : [id number] Requested By: VIJAY MACIAS Order Number: [id number] Reading MD: Mario Casanova MD Measurements Intervals [place] Rate: 74 P: 0 NV: 164 QRS: -2 QRSD: 72 T: 5 QT: 398 QTc: 447 Interpretive Statements SINUS RHYTHM NON-SPECIFIC ST/T CHANGES Electronically Signed On 12-26-2018 9:55:39 CDT by Mario Casanova MD
[2018-12-18 07:15] VITALS: BP 108/63
[2018-12-18] MEDS ORDERED: POLYETHYLENE GLYCOL 3350 17 GM PACKET. PO PRN (08:15)
--- NOTE | 2018-12-18 08:21 | PDOC ---
Provider Note Provider Note [id number] YOSEF GLASS MD Dec 18, 2018 08:21
--- NOTE | 2018-12-18 08:55 | NUR ---
IP: Pt has a recent hx of + mrsa screen on 12/07/18. Current screen pending. Pt to be in contact precautions. Nozin/CHG decolonization has been initiated.
[2018-12-18] MEDS ORDERED: ASPIRIN CHEWABLE 81 MG TABLET. PO SCH (09:00)
--- NOTE | 2018-12-18 09:26 | HP ---
ADMIT DATE: 12/17/2018 CHIEF COMPLAINT: Weakness and dehydration. HISTORY OF PRESENT ILLNESS: This is an 83-year-old white female who was discharged a week ago after left femoral neck fracture and repair and went to [facility]. When she left here, her hemoglobin was around 7.5 after postoperative blood loss, but her renal function was normal with a baseline creatinine of around 1.2. She came in with weakness and significant dehydration with no other complaints at this time. There has been no cough, fever, chills, or other specific complaints. MEDICATIONS: Listed per the chart. ALLERGIES: BIAXIN AND NIACIN. She is a DNR patient. SOCIAL HISTORY: Unknown at this time. Nonsmoker, nondrinker. FAMILY HISTORY: Unremarkable. REVIEW OF SYSTEMS: No other complaints. OBJECTIVE: ENT: Moderate pallor, otherwise all within normal limits. NECK: No carotid bruits, thyroid enlargement, or masses. LUNGS: Clear without tachypnea. CARDIOVASCULAR: Regular rate, mild tachycardia of 100, no murmur. ABDOMEN: Soft, benign, and nontender. EXTREMITIES: She has some bruising on the left lower leg, sutures on the left thigh and hip; otherwise, unremarkable with reasonable pedal pulses. NEUROLOGIC: She is mildly confused, not aware of date, but knows the year and knows that she lives at [facility]. ASSESSMENT: 1. Acute renal failure and hyperkalemia secondary to prerenal azotemia from dehydration. 2. Anemia postoperative left hip fracture repair. PLAN: Continue IV hydration and comfort care at this time. We will not transfuse unless her hemoglobin drops further. We will alter some of her meds to try to lessen some of the anticholinergic and hypotensive side effects. YOSEF GLASS MD DR: JUSTIN/jong JOB#: [id number] / [id number]
[2018-12-18] MEDS: ASCORBIC ACID 500 MG TABLET PO SCH (09:52)
[2018-12-18] MEDS: SENNOSIDES/DOCUSATE 8.6/50MG TABLET. PO SCH ×2 (09:52→22:53)
[2018-12-18] MEDS: PANTOPRAZOLE 40 MG TABLET.DR. PO SCH (09:52)
[2018-12-18] MEDS: SERTRALINE 50 MG TABLET. PO SCH (09:52)
[2018-12-18] MEDS: CARVEDILOL 6.25 MG TABLET. PO SCH ×2 (09:53→18:31)
[2018-12-18] MEDS: FERROUS SULFATE 325 MG TABLET. PO SCH (09:53)
[2018-12-18] MEDS: CALCITONIN,SALMON NASAL 200 UNITS/SPRAY 3.7ML BOTTLE. NS SCH (09:57)
[2018-12-18 11:04] VITALS: BP 114/59
[2018-12-18] MEDS: IPRATRPIUM/ALBUTEROL 0.5/2.5MG 3 ML NEBU. NEB SCH ×2 (11:27→20:06)
--- NOTE | 2018-12-18 12:28 | RAD ---
Lung scan 12/18/2018 CLINICAL HISTORY: Hypoxia. Recent surgery. TECHNIQUE: After the administration of 10.9 mCi of Xenon-133 gas, ventilation images of both lungs were obtained using the gamma camera. After the intravenous administration of 5.5 mCi of Technetium 99m MAA, perfusion images of both lungs were obtained using the gamma camera. FINDINGS: Comparison is made to a portable chest radiograph dated 12/17/2018. This demonstrates mild cardiomegaly. Mild congestive changes are seen involving both lungs. Slightly heterogeneous ventilation and perfusion to both lungs is seen. No unmatched perfusion defect is noted. These findings are consistent with a low probability study for pulmonary embolism. IMPRESSION: Low probability study. Electronically signed by: Can Wheeler MD (12/18/2018 12:25 PM) [id number]
--- NOTE | 2018-12-18 14:57 | NUR ---
Pt recently discharged from hospital after left femoral neck fracture and repair. Pt would benefit from PT/OT skilled services while admitted. Please order when pt medically appropriate for therapy services. Thank you. Addendum: 12/18/18 at 1457 by ZOILA TAYLOR, PT PT Amended: Links added.
[2018-12-18 15:15] VITALS: BP 121/58
[2018-12-18] MEDS: IV DEXTROSE 5% - 0.9 % NACL 1,000 ML IV SCH (16:11)
[2018-12-18 19:35] VITALS: BP 98/29
[2018-12-18] MEDS ORDERED: INSULIN GLARGINE SYRINGE. SQ SCH (21:00)
[2018-12-18] MEDS ORDERED: AMITRIPTYLINE HCL 25 MG TABLET. PO SCH (21:00)
[2018-12-18 23:30] VITALS: BP 89/34
[2018-12-19 03:30] VITALS: BP 99/54
[2018-12-19] MEDS: IV DEXTROSE 5% - 0.9 % NACL 1,000 ML IV SCH (04:04)
[2018-12-19 06:58] LABS: BILIRUBIN,URINE NEGATIVE (NEG); CLARITY,URINE CLEAR; COLOR,URINE YELLOW; NITRITE,URINE NEGATIVE (NEG); PH,URINE 5.5; PROTEIN,URINE NEGATIVE (NEG-TRACE); UROBILINOGEN,URINE 0.2 mg/dL (0.2 mg/dL)
[2018-12-19 07:00] VITALS: BP 129/54
[2018-12-19 07:14] LABS: SQUAMOUS EPITHELIAL CELL,UR MOD /LPF
[2018-12-19 07:15] LABS: WBC,URINE 20-40 /HPF (0-4)
[2018-12-19 07:16] LABS: BACTERIA,URINE FEW /HPF (0-FEW)
[2018-12-19] MEDS: IPRATRPIUM/ALBUTEROL 0.5/2.5MG 3 ML NEBU. NEB SCH (07:46)
[2018-12-19] MEDS ORDERED: FUROSEMIDE 20 MG/2 ML VIAL. IVP ONE (08:00)
--- NOTE | 2018-12-19 08:01 | PDOC ---
Provider Note Provider Note [id number] YOSEF GLASS MD Dec 19, 2018 08:01
--- NOTE | 2018-12-19 08:13 | DS ---
DATE OF DISCHARGE: 12/19/2018 HOSPITAL SUMMARY: An 83-year-old white female recently discharged after left femoral neck fracture, who came in with weakness and fatigue. She had prerenal azotemia with a BUN of 57, creatinine 2.0 and potassium of 5.9. Urine showed white blood cells and she has already been on antibiotics. Hemoglobin was 7.7 consistent with prior dismissal hemoglobin after hip surgery. Blood cultures had no growth. Chest x-ray showed no acute change. V/Q scan was low probability of pulmonary emboli. She was given IV fluids and comfort care and rehydrated and her BMP is pending at this time, but as she and her family both wish for her prior return to her nursing facility for comfort care, she remains a DNR patient. She was discharged in a state she is currently in. FINAL DIAGNOSES: 1. Acute renal failure secondary to prerenal azotemia. 2. Hyperkalemia secondary to acute renal failure. 3. Anemia immediate postoperative hip fracture repair. OPERATIONS, PROCEDURES, COMPLICATIONS, CONSULTATIONS: None. DISPOSITION: The patient remains on all same home medications. Comfort care measures, DNR patient and she requests no further transfer to the hospital, but simply comfort care measures. YOSEF GLASS MD DR: JUSTIN/nts JOB#: [id number] / [id number]
[2018-12-19 08:36] LABS: CALCIUM 8.6 mg/dL (8.5-10.1); CREATININE 1.5 mg/dL (0.6-1.0)
[2018-12-19 08:51] LABS: POTASSIUM 5.3 mmol/L (3.5-5.1)
[2018-12-19 11:27] VITALS: BP 142/64
[2018-12-19] MEDS: CALCITONIN,SALMON NASAL 200 UNITS/SPRAY 3.7ML BOTTLE. NS SCH (13:19)
[2018-12-19 13:20] VITALS: BP 142/64
[2018-12-19] MEDS: PANTOPRAZOLE 40 MG TABLET.DR. PO SCH (13:20)
[2018-12-19] MEDS: CARVEDILOL 6.25 MG TABLET. PO SCH (13:20)
[2018-12-19] MEDS: SERTRALINE 50 MG TABLET. PO SCH (13:20)
[2018-12-19] MEDS: SENNOSIDES/DOCUSATE 8.6/50MG TABLET. PO SCH (13:20)
[2018-12-19] MEDS: ASCORBIC ACID 500 MG TABLET PO SCH (13:21)
[2018-12-19] MEDS: FERROUS SULFATE 325 MG TABLET. PO SCH (13:21)
--- NOTE | 2018-12-19 13:45 | NUR ---
Pt discharged back to [facility]. Transportation provided by facility. Report called to Katie at facility. Sister Renee Craven notified.
--- NOTE | 2018-12-19 14:43 | NUR ---
Hearing aid was sent with pt and nursing facility is aware.
== END 2018-12-19 13:45 | disposition home or self-care (01) | DRG 682 ==
LOC: ER 17:26 → 6 SOUTH 21:07
PROVIDERS: ADMIT Family Medicine; ATTEND Family Medicine
DX: N17.9 Acute kidney failure, unspecified (principal); G93.41 Metabolic encephalopathy; E11.22 Type 2 diabetes mellitus with diabetic chronic kidney disease; F41.9 Anxiety disorder, unspecified; K21.9 Gastro-esophageal reflux disease without esophagitis; E78.00 Pure hypercholesterolemia, unspecified; E03.9 Hypothyroidism, unspecified; N18.9 Chronic kidney disease, unspecified; I12.9 Hypertensive chronic kidney disease with stage 1 through stage 4 chronic kidney disease, or unspecified chronic kidney disease; D64.9 Anemia, unspecified; E87.5 Hyperkalemia; E86.0 Dehydration; Z66 Do not resuscitate; Z51.5 Encounter for palliative care; G89.29 Other chronic pain; Z87.440 Personal history of urinary (tract) infections; Z88.8 Allergy status to other drugs, medicaments and biological substances
CPT/HCPCS: 36415; 71045; 78582; 80048; 80053; 81001; 82962; 83605; 83735; 84145; 85007; 85025; 85610; 85730; 86850; 86900; 86901; 87040; 87086; 87641; 93005; 94640; 94760; 96360; 96361; 96374; A9540; A9558; J0630; J1815; J1940; J2543; J7030; J7042; J7620; 99285-25; G0378